=== PATIENT | female | born 1970 | race Caucasian/White ===

== ENCOUNTER → 2017-11-12 06:51 | Outpatient (CLI) | payer BC, SELFPAY ==
--- NOTE | 2017-11-12 06:55 | CA_ITS ---
PROCEDURE: 2-D M-mode and color Doppler study INDICATIONS FOR THE TEST: Chest pain X COPD Heart Murmur Tobacco Smoking PalpitationsX FatigueX Syncope Edema Hypertension Diabetes Mellitus Rheumatic Fever SOB ANDINO Obesity Hyperlipidemia Family History HD Additional History BREAST IMPLANTS TDS APICAL VIEWS PATIENT INFORMATION HEIGHT: 61 WEIGHT:152 GENDER: Female B/P:123/82 2-D/M-MODE INTERPRETATION: 2-D MEASUREMENTS OBSERVED VALUES IN CMS Right Ventricular Dimension (RVDd) 2.9 Interventricular Septum (Thickness)(IVsd) .7 Left Ventricular Internal Dimensions(LVIDd) 4.6 Left Ventricular Posterior Wall (Thickness)(LVPWd) .7 Aortic Root 3.3 Aortic Cusp Separation 2.0 Left Atrial Dimensions (LAD) 3.4 2D 1. Left atrium is normal size, left ventricle is normal size, there is no concentric left ventricular hypertrophy, visually estimated ejection fraction 55% with no obvious regional wall motion abnormality. 2. The right atrium and right ventricle are grossly normal size and contractility. 3. The aortic, mitral and tricuspid valve are grossly normal. 4. The pulmonic valve is poorly visualized. 5. No significant pericardial effusion noted. DOPPLER INTERROGATION: Doppler interrogation of the aortic, mitral and tricuspid valvular presence of mild mitral and tricuspid regurgitation, tricuspid regurgitation jet velocity is insufficient for calculation of the right ventricular systolic pressure, diastolic parameters are inconclusive. CONCLUSION: 1. Normal left ventricular size, there is no concentric left ventricular hypertrophy, visually estimated ejection fraction 55% with no regional wall motion abnormality. Diastolic parameters are inconclusive. 2. Mild mitral and tricuspid regurgitation 3. No significant pericardial effusion noted.
--- NOTE | 2017-11-12 06:55 | NM_ITS ---
History and Indications: Chest pain, shortness of breath, palpitations, fatigue and family history. Procedure: Patient exercised on Bubba protocol 8 minutes, resting heart rate was 83 beats per resting blood pressure 155/95, with exercise maximum heart rate achieved was 1 55 bpm which is greater than 85% of the maximum predicted heart rate and a blood pressure was 168/80. Test was started due to shortness of breath patient denied any complained of chest pain. Patient has good exercise capacity achieved 10.1mets of workload on treadmill, the blood pressure response to exercise was adequate. Electrocardiogram: Resting echocardiogram showed sinus rhythm, with exercise there is less than 1.[address] segment depression noted from the baseline EKG. The EKG portion of the exercise Myoview is negative for ischemia. Cardiac stress and resting SPECT images: Cardiac stress and rest SPECT images were obtained using technetium 99 Myoview 29.7 mCi stress and 10.6 mCi at rest gated SPECT further analysis of segmental wall motion and calculation of the ejection fraction also done. Cardiac stress and rest images show a mild fixed defect in the anterior wall with normal contractility in the gated SPECT is secondary to soft tissue attenuation, no reversible ischemia seen, computer derived ejection fraction is over 65% with no regional wall motion abnormality, right ventricle is normal size and contractility. Conclusion: 1. The EKG portion of the exercise Myoview is negative for ischemia, patient has good exercise capacity achieved 10.1mets of workload on treadmill, the blood pressure response to exercise was adequate, there was no exercise-induced chest discomfort. 2. No scintigraphic evidence of reversible ischemia seen at this level of exercise, computer derived ejection fraction is over 65% with no regional wall motion abnormality, right ventricle is normal size and contractility. 3. Normal exercise Myoview study.
--- NOTE | 2017-11-12 09:33 | HMH.ITSHM ---
levothyroxine colace calium
== END ==
PROVIDERS: PCP Internal Medicine; Visit Provider Internal Medicine
DX: R07.9 Chest pain, unspecified (principal); R00.0 Tachycardia, unspecified; R00.2 Palpitations; R06.02 Shortness of breath; C73 Malignant neoplasm of thyroid gland; F43.9 Reaction to severe stress, unspecified; R91.8 Other nonspecific abnormal finding of lung field
CPT/HCPCS: 78452; 93017; 93306; A9502

== ENCOUNTER 2018-05-19 17:20 | Observation (INO) ==
--- NOTE | 2018-05-19 18:37 | Emergency Department Note ---
ED Disposition Clinical Impression: Elevated liver enzymes Fever Qualifiers: Fever type: unspecified Qualified Code(s): R50.9 - Fever, unspecified Disposition: Admitted as Observation Condition on Discharge: Fair Referrals: Provider,Referral, [Referring] - - Critical Care Critical Care Time: No Attestation: On 05/19/18, the high probability of a clinically significant, sudden or life threatening deterioration of the following system(s) required my full and direct attention, intervention and personal management. The time I documented below is in addition to time spent performing reported procedures but includes the following listed in this critical care notation. Medical Decision Making - Naveen Inquiry Pt receiving controlled substance: No Vital Signs: 05/19/18 17:31 05/19/18 17:52 05/19/18 18:10 Temperature 98.2 F Temperature Source Oral Pulse Rate 108 H Pulse Rate [Left Radial] 111 H 100 H Respiratory Rate 18 18 Blood Pressure [Right Arm] 149/92 H 161/98 H Blood Pressure Mean [Right Arm] 111 119 Blood Pressure Source [Right Arm] Automatic Cuff Automatic Cuff Blood Pressure Position [Right Arm] Sitting Sitting 02 Sat by Pulse Oximetry 95 98 Oxygen Delivery Method Room Air Room Air 05/19/18 19:40 05/19/18 20:34 Temperature 100.6 F H 99.7 F H Temperature Source Oral Oral Pulse Rate Pulse Rate [Left Radial] 114 H 101 H Respiratory Rate 18 18 Blood Pressure [Right Arm] 150/91 H Blood Pressure Mean [Right Arm] 110 Blood Pressure Source [Right Arm] Blood Pressure Position [Right Arm] 02 Sat by Pulse Oximetry 98 95 Oxygen Delivery Method Room Air Room Air - Lab Data Lab Results 05/19/18 17:49: Influenza Type A Ag Negative, Influenza Type B Ag Negative 05/19/18 17:49: Group A Strep Rapid Negative 05/19/18 18:00: WBC 9.8, RBC 4.73, Hgb 13.9, Hct 41.5, MCV 87.8, MCH 29.4, MCHC 33.5, RDW 12.9, Plt Count 270, MPV 6.9 L, Neut % (Auto) 75.5, Lymph % (Auto) 16.3, [place] % (Auto) 6.1, Eos % (Auto) 1.7, Baso % (Auto) 0.3, Neut # (Auto) 7.4, Lymph # (Auto) 1.6, [place] # (Auto) 0.6, Eos # (Auto) 0.2, Baso # (Auto) 0.0 05/19/18 18:00: Sodium 142, Potassium 3.3 L, Chloride 103, Carbon Dioxide 29, Anion Gap 13.3, BUN 8, Creatinine 0.74, Estimated Creat Clear 104, Estimated GFR 84, Est GFR ( Amer) 102, Glucose 91, Calcium 9.1, Total Bilirubin 0.4, AST 190 H, ALT 389 H*, Alkaline Phosphatase 161 H, Total Protein 8.1, Albumin 3.8, Globulin 4.3 H, Albumin/Globulin Ratio 0.9 L, TSH 1.46 05/19/18 18:00: Lactate 1.0 05/19/18 18:00: Monoscreen Negative 05/19/18 19:25: Urine Color Yellow, Urine Appearance Clear, Urine pH 6.0, Ur Specific [place] 1.010, Urine Protein Negative, Urine Glucose (UA) Negative, Urine Ketones Negative, Urine Blood 1+, Urine Nitrate Negative, Urine Bilirubin Negative, Urine Urobilinogen 0.2, Ur Leukocyte Esterase Negative, Urine RBC Occasional, Urine WBC Occasional, Ur Squamous Epith Cells Occasional, Urine Bacteria Trace Result diagrams: 05/19/18 18:00 05/19/18 18:00 Orders (Tests/Meds): ED MEDICATIONS Generic Name Dose Route Start Last Admin Trade Name Freq PRN Reason Stop Dose Admin Sodium Chloride 10 ml 05/19/18 19:13 Saline Flush 10ml Syringe IV 06/18/18 19:12 NEEDED PRN Maintain IV Site Discontinued Medications Generic Name Dose Route Start Last Admin Trade Name Freq PRN Reason Stop Dose Admin Acetaminophen 1,000 mg 05/19/18 19:38 05/19/18 19:39 Tylenol 500mg Tablet PO 05/19/18 19:39 1,000 mg ONCE ONE Administration Albuterol/Ipratropium 3 ml 05/19/18 18:11 05/19/18 18:10 Duoneb 3ml Neb IH 05/19/18 18:12 3 ml ONCE ONE Administration Ketorolac Tromethamine 30 mg 05/19/18 20:37 05/19/18 20:37 Toradol 30mg/Ml Vial IV 05/19/18 20:38 30 mg ONCE ONE Administration Sodium Chloride 1,000 ml 05/19/18 19:14 05/19/18 19:17 Sod Chlor 0.9% 1000ml Bag IV 05/19/18 19:15 1,000 ml BOLUS ONE Administration ORDERS Category Date Time Status Chest XR 2 view (NOT portable) [XR chest 2V] Stat Exams 05/19/18 19:14 Taken C-Reactive Protein Stat Lab 05/19/18 20:45 Ordered ESR [Erythrocyte Sedimentation Rate] Stat Lab 05/19/18 20:45 Ordered Hepatitis Panel (4) Routine Lab 05/19/18 18:00 Received Blood Culture Stat Micro 05/19/18 18:00 Received Strep Screen Confirmation Stat Micro 05/19/18 17:49 Received - Radiology Data #1 Image(s): Chest Image Reviewed: Yes I reviewed the patient's radiology image Preliminary Findings: Normal/NAD - Physician Consults Physician Consulted: Jai (patient's personal friend, per her request) Time: 20:52 Reason -: Pt condition Comment/Response: Patient approves discussing case. Additional Consult: Amisha Time: 20:52 Reason -: Admission Comment/Response: Agrees to admit the patient to the hospital. We discussed the patient's clinical information, including history, exam, laboratory and radiology results and ED course. Per hospital procedure, I will write temporary bridge inpatient orders on the patient. Specific orders requested by the admitting physician: Sed rate, CRP, continue IV fluids. General Adult HPI - General Chief complaint: Upper Respiratory Infection Stated complaint: cough,fever,throat hurts Time Seen by Provider: 05/19/18 19:06 Mode of Arrival: Ambulatory Limitations: No Limitations Description of Symptoms (Recalled from ER Triage Doc. by RN): pt has been complaining of a fever for several months, a cough for the past three days; dry cough, sore throat. Pt states that she has been experiencing hematuria; she also states that she has thyroid cancer. pt complains of myalgia and weakness - History of Present Illness HPI narrative: Since Thursday 3 days ago has had hoarse voice, sinuses, cough, fever up to 101.5. Also states for the past 6 months she has had chills, subjective low-grade fever not measured, and fatigue. She says she has seen her primary care doctor and has been on antibiotics several times due to enlarged lymph nodes. She also says that she had hematuria about 6 months ago and was treated with antibiotic for UTI. Hematuria recurred 2 weeks ago. Also complains of a very dry mouth, feels dehydrated. - Related Data Home Medications Medication Instructions Recorded Confirmed calcium carbonate 300 mg (750 mg) 600 mg PO BID tab 11/04/17 05/19/18 chewable tablet estradiol 1 mg tablet 1 mg PO BID tab 11/04/17 05/19/18 levothyroxine 125 mcg tablet 125 mcg PO DAILY 11/04/17 05/19/18 omeprazole 20 mg capsule,delayed 20 mg PO DAILY 11/04/17 05/19/18 release Amoxicillin/Potassium Clav 2 tab PO DAILY 05/19/18 05/19/18 [Augmentin 500mg tab] Allergies Allergy/AdvReac Type Severity Reaction Status Date / Time No Known Allergies Allergy Verified 11/16/17 12:27 [facility] History - Hepatitis A Screen Drug use history?: No High risk sexual behaviors?: No History of sexually transmitted infection?: No Currently employed?: No Childcare worker?: No Do you have indoor plumbing?: Yes Do you have electricity?: Yes Attestation statement:: This patient has been screened for Hepatitis A risk factors. I have reviewed the patient's past medical history: Yes Medical History: Reports:: Gastroesophageal Reflux Disease(GERD) Denies:: Cancer, Diabetes Mellitus Type 1, Diabetes Mellitus Type 2, Internal Pacemaker, MRSA Other Surgeries: Yes: Cancer Surgery (thyroid), Cholecystectomy, , Hysterectomy-Total, Hysterectomy-Partial. No: Pacemaker Amputation: No Fractures: No Comment: Jaw surgery - Social History Educational Level: Completed High School Smoking Status: Current some day smoker Tobacco Type: cigarettes # Packs/Day (cigarettes): 1 Alcohol Intake: current Alcohol Intake Frequency:: holidays/special occasions only Occupational Status: employed Housing: house Household Members: spouse - Psychiatric History Expresses thoughts of harming self/others: None Suicide Plan Description: No Plan Family Hx:: Diabetes, Heart Attack ROS Obtained: Yes All systems reviewed & no additional complaints - Constitutional Constitutional: Reports fever(s), Reports malaise Physical Exam - General General appearance: alert, in no apparent distress - Head Head exam: atraumatic, normocephalic, normal inspection - Eye Eye exam: Present: normal appearance, PERRL, EOMI - ENT ENT exam: Present: normal exam, normal oropharynx, mucous membranes moist, TM's normal bilaterally, normal external ear exam - Neck Neck exam: Present: normal inspection, full ROM, trachea midline. Absent: meningismus, lymphadenopathy - Chest Chest inspection: Present: normal inspection, symmetric chest wall rise - Respiratory Respiratory exam: Present: normal lung sounds bilaterally. Absent: respiratory distress - Cardiovascular Cardiovascular exam: Present: regular rate, normal rhythm. Absent: JVD - Abdominal Exam Abdominal exam: Present: soft, normal bowel sounds. Absent: distention, tenderness, guarding - Extremities Exam Extremities exam: Present: normal inspection, full ROM, normal capillary refill. Absent: calf tenderness - Neurological Exam Neurological exam: Present: alert, oriented X3 - Psychiatric Psychiatric exam: Present: normal affect, normal mood - Skin Skin exam: Present: warm, dry, intact, normal color - Lymphatic Lymphatic Findings: no adenopathy
[2018-05-19 19:27] LABS: Basophils % 0.3 % (0.1-2.0); Eosinophils # 0.2 K/mm3 (0.0-0.4); Eosinophils % 1.7 % (0.1-12.0); Hematocrit 41.5 % (37.0-47.0); Hemoglobin 13.9 g/dL (12.2-16.2); Lymphocytes # 1.6 K/mm3 (0.7-4.5); Lymphocytes % 16.3 % (10-50); Mean Corpuscular HGB Conc 33.5 g/dL (31.8-35.4); Mean Corpuscular Hemoglobin 29.4 pg (27.0-31.2); Mean Corpuscular Volume 87.8 fl (81-99); Mean Platelet Volume 6.9 fl (7.4-10.4); Monocytes # 0.6 K/mm3 (0.1-1.0); Monocytes % 6.1 % (1.7-9.3); Neutrophils # 7.4 K/mm3 (1.8-7.8); Neutrophils % 75.5 % (37.0-80.0); Platelet Count 270 K/mm3 (142-424); Red Blood Count 4.73 M/mm3 (4.20-5.40); Red Cell Distribution Width 12.9 % (11.5-17.5); White Blood Count 9.8 K/mm3 (4.8-10.8)
[2018-05-19 19:35] LABS: Microscopic, Urine URINE MICROSCOPIC (MICROSCOPIC)
[2018-05-19 19:37] LABS: Appearance,Urine CLEAR (Clear); Bilirubin,Urine Negative (Negative); Blood, Urine 1+ (Negative); Color,Urine YELLOW (Yellow); Glucose,Urine (UA) Negative (Negative); Ketones,Urine Negative (Negative); Leukocyte Esterase,Urine Negative (Negative); Protein,Urine Negative (Negative); Urobilinogen,Urine 0.2 EU/dl (0.2)
[2018-05-19 19:40] LABS: Albumin Level 3.8 gm/dL (3.4-5.0); Albumin/Globulin Ratio 0.9 (1.1-1.8); Anion Gap 13.3 mEq/L (5-15); Bilirubin,Total 0.4 mg/dL (0.2-1.0); Calcium 9.1 mg/dL (8.5-10.1); Globulin 4.3 gm/dl (1.3-3.2); Potassium 3.3 mmoL/L (3.5-5.1); Thyroid Stimulating Hormone 1.46 uIU/ml (0.358-3.740); Total Protein,Serum 8.1 gm/dL (6.4-8.2)
[2018-05-19 20:09] LABS: Bacteria,Urine Trace /lpf; RBC,Urine Occasional #/hpf (0-3); Squamous Epithelial Cell,Urine Occasional #/hpf (0-5); WBC,Urine Occasional #/hpf (0-3)
[2018-05-19 20:57] LABS: Coronavirus 229E Not Detected (NotDetected); Coronavirus NL63 Not Detected (NotDetected); Coronavirus OC43 Not Detected (NotDetected); Coronovirus HKU1,PCR Not Detected (NotDetected)
[2018-05-20 08:06] LABS: Basophils # 0.1 K/mm3 (0-0.2); Basophils % 0.7 % (0.1-2.0); Eosinophils # 0.5 K/mm3 (0.0-0.4); Eosinophils % 6.6 % (0.1-12.0); Hematocrit 38.2 % (37.0-47.0); Hemoglobin 12.7 g/dL (12.2-16.2); Lymphocytes # 1.3 K/mm3 (0.7-4.5); Lymphocytes % 18.7 % (10-50); Mean Corpuscular HGB Conc 33.3 g/dL (31.8-35.4); Mean Corpuscular Hemoglobin 29.4 pg (27.0-31.2); Mean Corpuscular Volume 88.1 fl (81-99); Mean Platelet Volume 6.7 fl (7.4-10.4); Monocytes # 0.6 K/mm3 (0.1-1.0); Neutrophils # 4.6 K/mm3 (1.8-7.8); Platelet Count 246 K/mm3 (142-424); Red Blood Count 4.34 M/mm3 (4.20-5.40); Red Cell Distribution Width 12.9 % (11.5-17.5)
[2018-05-20 08:19] LABS: Bilirubin,Direct 0.1 mg/dL (0.0-0.2); Bilirubin,Indirect 0.3 mg/dL (0.0-0.9); Bilirubin,Total 0.4 mg/dL (0.2-1.0); Total Protein,Serum 6.6 gm/dL (6.4-8.2)
--- NOTE | 2018-05-20 08:59 | Pharmacy Consult Notes ---
[facility] Pharmacy VTE Monitoring - Patient Demographics Admission date: 05/20/18 Report Date: 05/20/18 Time: 08:59 Allergies/Adverse Reactions: Patient Allergies No Known Allergies Allergy (Verified 11/16/17 12:27) Height: 1.52 m Weight: 72.263 kg Patient Problems: Current Active Problems Fever (Acute) Elevated liver enzymes (Acute) - VTE Risk Labs: VTE Related Lab Results Hgb 12.7 g/dL (12.2-16.2) 05/20/18 07:43 Hct 38.2 % (37.0-47.0) 05/20/18 07:43 Plt Count 246 K/mm3 (142-424) 05/20/18 07:43 BUN 8 mg/dL (7-18) 05/19/18 18:00 Creatinine 0.74 mg/dL (0.55-1.02) 05/19/18 18:00 Estimated Creat Clear 104 mL/min (50-200) 05/19/18 18:00 Was VTE Risk Assessment Performed: Yes VTE Risk Level: Low Risk Clinical Trial Participant: No - Prophylaxis VTE Prophylaxis Ordered?: Yes Types of VTE Prophylaxis: TEDS Knee High
--- NOTE | 2018-05-20 09:08 | History & Physical Report ---
*Admission Date: 05/20/18 *Chief complaint: fatigue *History of present illness: 48 yr old female presents to ed with c/o of hoarse voice, sinuses, cough,dry mouth, fever up to 101.5. Pt states for the past 6 months she has had chills, subjective low-grade fever not measured, and fatigue. She says she has had enlarged lymph nodes and on antibiotics several times by primary care doctor.She also says that she had hematuria about 6 months ago and was treated with antibiotic for UTI. Hematuria recurred 2 weeks ago. [facility] History I have reviewed the patient's past medical history: Yes Medical History: Reports:: Cancer (Thyroid cancer 2013), Gastroesophageal Reflux Disease(GERD), Hyperlipidemia Denies:: Diabetes Mellitus Type 1, Diabetes Mellitus Type 2, Internal Pacemaker, MRSA *Have you ever received a pneumonia vaccine?: No *Have you received a flu vaccine this season?: No Other Medical History: Reports: Radiation Therapy (2013), Sinus Problems Other Surgeries: Yes: Cancer Surgery (thyroid), Cholecystectomy, Colonoscopy, C- section, EGD, Hysterectomy-Total, Hysterectomy-Partial, Thyroidectomy (partial). No: Pacemaker Amputation: No Fractures: No - *Social History Educational Level: Attended High School Smoking Status: Current every day smoker Tobacco Type: cigarettes # Packs/Day (cigarettes): 0 Alcohol Intake: never Alcohol Intake Frequency:: holidays/special occasions only *Occupational Status:: employed Housing: house Household Members: spouse *Travel in the last 8 weeks: None - Psychiatric History Expresses thoughts of harming self/others: None Suicide Plan Description: No Plan Family Hx:: Diabetes, Heart Attack, Hyperlipidemia, Hypertension, Stroke, Thyroid Disorder Review of Systems - Review of Systems Review of systems:: pertinent systems reviewed and negative unless documented below - Constitutional Reports chills, Reports fever(s) - Eyes Denies change in vision - ENT Reports dry mouth, Reports sinus pain, Denies change in voice - *Cardiovascular Denies chest pain with activity, Denies shortness of breath - *Respiratory Denies chest congestion, Denies cough - *Gastrointestinal Denies bloating - *Genitourinary Denies urinary urgency - *Musculoskeletal Reports body aches - Integumentary/Breasts Denies rash - *Neurologic Denies dizziness - Psychiatric Denies anxiety - Endocrine Denies excessive sweating - Hematologic/Lymphatic Reports enlarged lymph nodes - Allergic/Immunologic Denies lip swelling, Denies hives Meds Home Medications Medication Instructions Recorded Confirmed Type calcium carbonate 300 mg (750 mg) 600 mg PO BID tab 11/04/17 05/19/18 History chewable tablet estradiol 1 mg tablet 2 mg PO DAILY tab 11/04/17 05/20/18 History levothyroxine 125 mcg tablet 125 mcg PO DAILY 11/04/17 05/19/18 History omeprazole 20 mg capsule,delayed 20 mg PO DAILY 11/04/17 05/19/18 History release Amoxicillin/Potassium Clav 1 tab PO BID 05/19/18 05/20/18 History [Augmentin 500mg tab] Diclofenac Sodium [Diclofenac 75mg 75 mg PO BIDP PRN 05/20/18 05/20/18 History Tab] Trazodone HCl 50 mg PO HS 05/20/18 05/20/18 History Zolpidem Tartrate [Ambien 10mg 10 mg PO HSP PRN 05/20/18 05/20/18 History tablet] Allergies Allergy/AdvReac Type Severity Reaction Status Date / Time No Known Allergies Allergy Verified 11/16/17 12:27 Exam Vital signs and Labs for Last 24 Hours: Temp Pulse Resp BP Pulse Ox 98.1 F 94 H 16 122/78 95 05/20/18 08:00 05/20/18 08:00 05/20/18 08:00 05/20/18 08:00 05/20/18 08:00 Laboratory Results - last 24 hr 05/19/18 17:49: Influenza Type A Ag Negative, Influenza Type B Ag Negative 05/19/18 17:49: Group A Strep Rapid Negative 05/19/18 18:00: WBC 9.8, RBC 4.73, Hgb 13.9, Hct 41.5, MCV 87.8, MCH 29.4, MCHC 33.5, RDW 12.9, Plt Count 270, MPV 6.9 L, Neut % (Auto) 75.5, Lymph % (Auto) 16.3, [place] % (Auto) 6.1, Eos % (Auto) 1.7, Baso % (Auto) 0.3, Neut # (Auto) 7.4, Lymph # (Auto) 1.6, [place] # (Auto) 0.6, Eos # (Auto) 0.2, Baso # (Auto) 0.0 05/19/18 18:00: Sodium 142, Potassium 3.3 L, Chloride 103, Carbon Dioxide 29, Anion Gap 13.3, BUN 8, Creatinine 0.74, Estimated Creat Clear 104, Estimated GFR 84, Est GFR ( Amer) 102, Glucose 91, Calcium 9.1, Total Bilirubin 0.4, AST 190 H, ALT 389 H*, Alkaline Phosphatase 161 H, Total Protein 8.1, Albumin 3.8, Globulin 4.3 H, Albumin/Globulin Ratio 0.9 L, TSH 1.46 05/19/18 18:00: Lactate 1.0 05/19/18 18:00: Monoscreen Negative 05/19/18 18:00: ESR 0 05/19/18 18:00: C-Reactive Protein 6.1 H 05/19/18 18:00: Mycoplasma pneumon IgM Non-reactive 05/19/18 19:25: Urine Color Yellow, Urine Appearance Clear, Urine pH 6.0, Ur Specific [place] 1.010, Urine Protein Negative, Urine Glucose (UA) Negative, Urine Ketones Negative, Urine Blood 1+, Urine Nitrate Negative, Urine Bilirubin Negative, Urine Urobilinogen 0.2, Ur Leukocyte Esterase Negative, Urine RBC Occasional, Urine WBC Occasional, Ur Squamous Epith Cells Occasional, Urine Bacteria Trace 05/19/18 20:50: Chlamy pneumoniae PCR Not detected, Adenovirus (PCR) Not detected, B. pertussis DNA (PCR) Not detected, Coronavirus OC43 (PCR) Not detected, Coronavirus HKU1 (PCR) Not detected, Coronavirus 229E (PCR) Not detected, Coronavirus NL63 (PCR) Not detected, Human Metapneumovir PCR Not detected, Influenza A (H1) PCR Not detected, Influ A (H1N1/09) PCR Not detected, Influenza A (H3) PCR Not detected, Influenza Type A (PCR) Not detected, Influenza Type B (PCR) Not detected, M. pneumoniae (PCR) Not detected, Parainfluenza 1 (PCR) Not detected, Parainfluenza 2 (PCR) Not detected, Parainfl uenza 3 (PCR) Detected A, Parainfluenza 4 (PCR) Not detected, RSV (PCR) Not detected, Entero/Rhino (PCR) Not detected 05/20/18 07:43: WBC 7.0 D, RBC 4.34, Hgb 12.7, Hct 38.2, MCV 88.1, MCH 29.4, MCHC 33.3, RDW 12.9, Plt Count 246, MPV 6.7 L, Neut % (Auto) 66.0, Lymph % (Auto) 18.7, [place] % (Auto) 8.0, Eos % (Auto) 6.6, Baso % (Auto) 0.7, Neut # (Auto) 4.6, Lymph # (Auto) 1.3, [place] # (Auto) 0.6, Eos # (Auto) 0.5 H, Baso # (Auto) 0.1 05/20/18 07:43: Total Bilirubin 0.4, Direct Bilirubin 0.1, Indirect Bilirubin 0.3, AST 188 H, ALT 351 H*, Alkaline Phosphatase 146 H, Total Protein 6.6, Albumin 3.0 L D I & O for Last 24 hours: Intake & Output 05/17/18 05/18/18 05/19/18 05/20/18 11:59 11:59 11:59 11:59 Intake Total 240 / 240 Balance 240 / 240 Weight 159 lb 5 oz - Constitutional no acute distress - *Routine HEENT Exam Head: Present: normocephalic Eye: Present: EOMI, PERRL ENT: Present: mucous membranes moist Comments: nasal congestion,runny nose - *Routine Neck Exam Present: supple, lymphadenopathy - *Routine Respiratory Exam Present: CTA bilaterally - *Routine Cardiovascular Exam Present: RRR - *Routine Abdominal Exam Present: soft, normoactive bowel sounds. Absent: tenderness - *Routine Extremities Exam Absent: cyanosis, clubbing, edema - *Routine Skin Exam Present: warm. Absent: rash - *Routine Neurological Exam Present: alert, oriented X3 - Routine Psychiatric Exam Present: normal affect Assessment and Plan (1) Fever Current visit: Yes Status: Acute Qualifiers: Fever type: unspecified Qualified Code(s): R50.9 - Fever, unspecified Category: Medical Code(s): R50.9 - Fever, unspecified (2) Multiple pulmonary nodules Current visit: No Status: Chronic Category: Medical Code(s): R91.8 - Other nonspecific abnormal finding of lung field (3) Thyroid cancer Current visit: No Status: Chronic Category: Medical Code(s): C73 - Malignant neoplasm of thyroid gland history of thyroid cancer - Assessment and plan all Dx Assessment and Plan for all problems:: rounded with elen all orders per elen
[2018-05-20 10:07] LABS: Free Thyroxine Index 4.3 ug/dL (5.93-13.13); Thyroid Stimulating Hormone 2.75 uIU/ml (0.358-3.740)
[2018-05-21 08:56] LABS: Basophils % 0.2 % (0.1-2.0); Eosinophils % 0.4 % (0.1-12.0); Hematocrit 38.5 % (37.0-47.0); Hemoglobin 12.7 g/dL (12.2-16.2); Lymphocytes # 0.7 K/mm3 (0.7-4.5); Lymphocytes % 11.8 % (10-50); Mean Corpuscular Volume 87.7 fl (81-99); Monocytes # 0.3 K/mm3 (0.1-1.0); Monocytes % 5.7 % (1.7-9.3); Neutrophils # 4.9 K/mm3 (1.8-7.8); Neutrophils % 81.9 % (37.0-80.0); Platelet Count 254 K/mm3 (142-424); Red Blood Count 4.39 M/mm3 (4.20-5.40); Red Cell Distribution Width 12.7 % (11.5-17.5); White Blood Count 5.9 K/mm3 (4.8-10.8)
[2018-05-21 09:15] LABS: Hepatitis B Core Antibody IgM Negative (Negative); Hepatitis B Surface Antigen Negative (Negative)
[2018-05-21 09:24] LABS: Albumin Level 2.9 gm/dL (3.4-5.0); Albumin/Globulin Ratio 0.7 (1.1-1.8); Anion Gap 13.6 mEq/L (5-15); Bilirubin,Total 0.2 mg/dL (0.2-1.0); Globulin 3.9 gm/dl (1.3-3.2); Potassium 3.6 mmoL/L (3.5-5.1); Total Protein,Serum 6.8 gm/dL (6.4-8.2)
--- NOTE | 2018-05-21 09:26 | Discharge Summary ---
General - General Admission date:: 05/19/18 Discharge date: 05/21/18 HPI HPI: 48 yr old female presents to ed with c/o of hoarse voice, sinuses, cough,dry mouth, fever up to 101.5. Pt states for the past 6 months she has had chills, subjective low-grade fever not measured, and fatigue. She says she has had enlarged lymph nodes and on antibiotics several times by primary care doctor.She also says that she had hematuria about 6 months ago and was treated with antibiotic for UTI. Hematuria recurred 2 weeks ago. Hospital Course Hospital Course: ct chest:IMPRESSION: There are 3 faint groundglass nodular opacities in the right upper lobe, a 5 mm nodular opacity in the right lower lobe, and patchy infiltrate in the left lung base. All of these areas could be related to infectious process/pneumonia. Suggest 6-8 week follow-up to confirm resolution as neoplasm cannot be excluded regarding the right upper and right lower lobe nodules. No adenopathy apparent ct abd/pelvis:FINDINGS: The liver, spleen, pancreas, adrenal glands, and kidneys have an unremarkable appearance. No renal or ureteral calculi. No renal or ureteral calculi evident. No intestinal obstruction or free air. No evidence of appendicitis. There is mild diverticulosis of the descending and sigmoid colon. There is some mild thickening of the descending and sigmoid colon which could be due to nondistention or colitis. There are few small mesenteric lymph nodes. No acute bony findings. There are postcholecystectomy changes. IMPRESSION: 1. Possible colitis of the descending and sigmoid colon versus nondistention. 2. Otherwise negative Today patient states she is feeling better and feels like she can go home. Asked patient to get up maneuver around the room see if she feels she can go home. Patient will follow up with Dr. Ward on Thursday. Patient will call the office for other lab results. Patient will follow up with her primary care provider. Objective Vital signs: Temp Pulse Resp BP Pulse Ox 98.4 F 89 17 120/73 92 L 05/21/18 08:00 05/21/18 08:00 05/21/18 08:00 05/21/18 08:00 05/21/18 08:00 no acute distress - *Routine HEENT Exam Head: Present: normocephalic Eye: Present: PERRL ENT: Present: mucous membranes moist - *Routine Neck Exam Present: full ROM - *Routine Respiratory Exam Present: CTA bilaterally - *Routine Cardiovascular Exam Present: RRR - *Routine Abdominal Exam Present: soft, normoactive bowel sounds - *Routine Extremities Exam Present: full ROM - *Routine Skin Exam Present: intact - *Routine Neurological Exam Present: alert, oriented X3 - Routine Psychiatric Exam Present: normal affect Results Labs on day of discharge: Labs from last 24 hours 05/21/18 05/21/18 05/20/18 08:40 08:40 09:28 WBC 5.9 RBC 4.39 Hgb 12.7 Hct 38.5 MCV 87.7 MCH 29.0 MCHC 33.0 RDW 12.7 Plt Count 254 MPV 7.0 L Neut % (Auto) 81.9 H Lymph % (Auto) 11.8 [place] % (Auto) 5.7 Eos % (Auto) 0.4 Baso % (Auto) 0.2 Neut # (Auto) 4.9 Lymph # (Auto) 0.7 [place] # (Auto) 0.3 Eos # (Auto) 0.0 Baso # (Auto) 0.0 Sodium 143 Potassium 3.6 Chloride 105 Carbon Dioxide 28 Anion Gap 13.6 BUN 6 L Creatinine 0.64 Estimated Creat Clear 125 Estimated GFR 99 Est GFR ( Amer) 120 Glucose 167 H Total Bilirubin 0.2 AST 125 H D ALT 347 H* Alkaline Phosphatase 165 H Total Protein 6.8 Albumin 2.9 L Globulin 3.9 H Albumin/Globulin Ratio 0.7 L TSH 2.75 D Free T4 Index 4.3 L Thyroxine (T4) 12.0 T3 Uptake 36 - Additional Comments Rounded with Dr. Lion all orders per Amisha DS: Diagnosis - Discharge Diagnosis (1) Fever Status: Acute (2) Multiple pulmonary nodules Status: Chronic (3) Thyroid cancer Status: Chronic Discharge Plan - Patient Discharge Instructions ACTIVITY: Continue current activity DIET: continue same diet Patient Instructions: Fever of Unknown Origin, Liver Function Tests - Follow up Plan Follow up with: Cesar Ward MD [Consulting Physician] - 05/25/18 Disposition: Home, Self-Half-Way Medications: Home Medications Medication Instructions Recorded Confirmed Type calcium carbonate 300 mg (750 mg) 600 mg PO BID tab 11/04/17 05/19/18 History chewable tablet estradiol 1 mg tablet 2 mg PO DAILY tab 11/04/17 05/20/18 History levothyroxine 125 mcg tablet 125 mcg PO DAILY 11/04/17 05/19/18 History omeprazole 20 mg capsule,delayed 20 mg PO DAILY 11/04/17 05/19/18 History release Amoxicillin/Potassium Clav 1 tab PO BID 05/19/18 05/20/18 History [Augmentin 500mg tab] Diclofenac Sodium [Diclofenac 75mg 75 mg PO BIDP PRN 05/20/18 05/20/18 History Tab] Zolpidem Tartrate [Ambien 10mg 10 mg PO HSP PRN 05/20/18 05/20/18 History tablet] levoFLOXacin [Levaquin 500mg 500 mg PO DAILY #7 tab 05/21/18 Rx tab] Prescriptions/Medication Reconciliation: New levoFLOXacin [Levaquin 500mg tab] 500 mg PO DAILY #7 tab Continue levothyroxine 125 mcg tablet 125 mcg PO DAILY calcium carbonate 300 mg (750 mg) chewable tablet 600 mg PO BID tab omeprazole 20 mg capsule,delayed release 20 mg PO DAILY estradiol 1 mg tablet 2 mg PO DAILY tab Zolpidem Tartrate [Ambien 10mg tablet] 10 mg PO HSP PRN PRN Reason: Insomnia Diclofenac Sodium [Diclofenac 75mg Tab] 75 mg PO BIDP PRN PRN Reason: Hip pain Discontinued Amoxicillin/Potassium Clav [Augmentin 500mg tab] 1 tab PO BID
[2018-05-21 09:33] LABS: Calcium 7.8 mg/dL (8.5-10.1)
[2018-05-21 12:16] LABS: Anti-Smith Antibody <0.2 AI (0.0-0.9)
[2018-05-21 18:32] LABS: Hepatitis C Antibody <0.1 s/co ratio (0.0-0.9)
== END 2018-05-21 12:39 | disposition home or self-care (01) ==
LOC: ER 17:20 → 2ND 17:20 → INTOOBSV 23:00 → OBSVTOIN 23:00 → 2ND 23:02
PROVIDERS: ADMIT Emergency Medicine; ATTEND Emergency Medicine
CPT/HCPCS: 36415; 71020; 71046; 71260; 74177; 80053; 80074; 80076; 81001; 82652; 83605; 84436; 84443; 84479; 85025; 85597; 85598; 85610; 85613; 85651; 85670; 85730; 86140; 86146; 86147; 86225; 86235; 86318; 86618; 86738; 87040; 87275; 87276; 87430; 87486; 87522; 87581; 87633; 87798; 96365; 96375; 99284; G0378; J2405; Q9967

== ENCOUNTER → 2020-01-16 10:43 | Outpatient (CLI) | payer OTHER, SELFPAY ==
[2020-01-17 14:05] LABS: Covid-19 Nasal PCR Sendout Lex NOT DETECTED
== END ==
PROVIDERS: Visit Provider Nurse Practitioner Family
DX: Z03.818 Encounter for observation for suspected exposure to other biological agents ruled out (principal)
CPT/HCPCS: U0004

== ENCOUNTER → 2020-01-25 15:00 | Outpatient (CLI) | payer OTHER, SELFPAY ==
--- NOTE | 2020-01-25 15:02 | CA_ITS ---
APPROVED REPORT EXAM: Comprehensive 2D, Doppler, and color-flow Echocardiogram Vice President Integrated: Nora Vicente CRT Ht: 5 ft 1 in Wt: 132lbs BSA: 1.58 BP: 120/73 mmHg Indications: SOA,CP,SMOKER,HTN,DIZZINESS,GERD,HX THYROID CA TDS-PT HAS BREAST IMPLANTS-LIMITED WINDOWS 2D Dimensions LVOT 1.91 cm (M/F) 1.5-2.5 M-Mode Dimensions RVDd 2.92 cm (0.9-2.6) LA Diam 2.85 cm (1.9-4.0) LVDd 4.33 cm (3.5-5.7) Ao Diam 3.02 cm (2.0-3.7) LVDs 2.98 cm (3.5-5.7) IVSd 0.80 cm (0.6-1.1) PWd 0.60 cm (0.6-1.1) EF (Teich) 59.20% FS 31.20% EDV (Teich) 84.40 mL ESV (Teich) 34.40 mL LV Diastology E Decel Time 153.00 (160-240 msec) E/A Ratio 1.2 MED E' 14.90 (< 7 cm/sec) E'/MED E' Ratio 4.46 (>14) LAT E' 11.40 (<10 cm/sec) E/LAT E' Ratio 5.83 (>14) Mitral Valve MV E Max Julius. 66.00 (40-130 cm/s) MV A Velocity 56.00 (40-130 cm/s) E/A Ratio 1.19 MV Decel. Time 153.00 (160-240 ms) MV PHT 45.00 ms Pulmonary Valve PV Peak Velocity 99.00 (50-150 cm/s) Tricuspid Valve TR P. Velocity 161.00 cm/s Left Ventricle Technically difficult study, normal left ventricular size, preserved left ventricular systolic function, visually estimated ejection fraction 55% with no regional wall motion abnormality, diastolic parameters are within normal range. Right Ventricle Right atrium and right ventricle are normal size and contractility. Aortic Valve Aortic valve is grossly normal, there is no aortic stenosis or aortic insufficiency. Mitral Valve Mitral valve is grossly normal, there is mild mitral regurgitation. Tricuspid Valve Tricuspid valve is grossly normal, there is mild tricuspid regurgitation, tricuspid regurgitation jet velocity is inadequate for calculation of the right ventricular systolic pressure. Pulmonic Valve Pulmonic valve is poorly visualized. Great Vessels Aortic root is normal size. Pericardium No significant pericardial effusion noted. Conclusion 1. Normal left ventricular size, preserved left ventricular systolic function, visually estimated ejection fraction 55% with no regional wall motion abnormality, diastolic parameters are within normal range. 2. Mild mitral and tricuspid regurgitation. 3. No significant pericardial effusion noted. Electronically signed by : Carlin Rajput, 01/26/2020 13:00:53
--- NOTE | 2020-01-25 15:43 | CT_ITS ---
PROCEDURE: CT ANGIO CHEST CLINCIAL INDICATION: chest pain Right-sided chest pain COMPARISON: CT CHESTW CT chest w con from 05/20/2018 TECHNIQUE: IV Contrast: 70ML Isovue 370 Axial images obtained with sagittal and coronal reformats. All CT scans at the facility use one or more dose reduction, viz: automated exposure control, ma/kV adjustment per patient size (including targeted exams where dose is matched to indication, i.e. head), or iterative reconstruction technique. FINDINGS: HEART AND MEDIASTINAL STRUCTURES: No evidence of pulmonary embolus, aortic aneurysm or dissection. No mediastinal or hilar mass. LUNGS AND PLEURAL SPACES: There is some minimal scarring in the apices. A 3 mm nodule is present in the right lower lobe laterally BONY STRUCTURES: No acute bony abnormalities apparent. UPPER ABDOMEN: Unremarkable. ADDITIONAL FINDINGS: Bilateral subpectoral implants IMPRESSION: No acute finding. No evidence of pulmonary embolus. Dictated by: Ehsan Perez MD 01/25/2020 16:53 Ehsan Perez MD in [place] 01/25/2020 16:53
[2020-01-25 17:11] LABS: Troponin I < 0.01 ng/ml (0.00-0.034)
== END ==
PROVIDERS: PCP Family Medicine; Visit Provider Nurse Practitioner Family
DX: R07.89 Other chest pain (principal); R06.02 Shortness of breath; R42 Dizziness and giddiness; I10 Essential (primary) hypertension
CPT/HCPCS: 36415; 71275; 84484; 93306; Q9967

== ENCOUNTER → 2020-01-25 15:34 | Outpatient (CLI) | payer OTHER, SELFPAY | PROVIDERS: Visit Provider Nurse Practitioner Family | DX: R06.02 Shortness of breath (principal) | CPT/HCPCS: 36415; 84484 ==

== ENCOUNTER 2021-05-24 01:27 | Emergency (ER) | payer OTHER, SELFPAY ==
[2021-05-24 01:29] VITALS: BP 127/96; PULSE 120; RESP 16; TEMP 37.1; O2SAT 98; BMI 26.9
--- NOTE | 2021-05-24 01:43 | CT_ITS ---
PROCEDURE INFORMATION: Exam: CTA Chest With Contrast Exam date and time: 05/24/2021 2:07 AM Age: 51 years old Clinical indication: Cough TECHNIQUE: Imaging protocol: Computed tomographic angiography of the chest with contrast. 3D rendering (Not supervised by radiologist): MIP and/or 3D reconstructed images were created by the technologist. Radiation optimization: All CT scans at this facility use at least one of these dose optimization techniques: automated exposure control; mA and/or kV adjustment per patient size (includes targeted exams where dose is matched to clinical indication); or iterative reconstruction. Contrast material: ISOVUE; Contrast volume: 70 ml; Contrast route: INTRAVENOUS (IV); COMPARISON: CT ANGIO CHEST 01/25/2020 4:10 PM FINDINGS: Pulmonary arteries: Normal. No pulmonary emboli. Aorta: Unremarkable. No aortic aneurysm. No aortic dissection. Lungs: Calcified granuloma in the lingula. No consolidation. Pleural spaces: Unremarkable. No pneumothorax. No pleural effusion. Heart: No significant coronary artery calcifications evident. Normal cardiac size. No pericardial effusion. Heart RV/LV ratio: The RV/LV ratio is normal. Lymph nodes: Calcified AP window lymph nodes. No lymphadenopathy. Liver: There is a diffuse decrease in hepatic parenchymal density, consistent with fatty infiltration. Gallbladder and bile ducts: There has been a cholecystectomy. Bones/joints: Unremarkable. No acute fracture. Soft tissues: Bilateral breast implants. IMPRESSION: 1. No pulmonary emboli. 2. Evidence for prior granulomatous disease. 3. Hepatic steatosis.
--- NOTE | 2021-05-24 01:43 | XR_ITS ---
PROCEDURE INFORMATION: Exam: XR Chest Exam date and time: 05/24/2021 1:57 AM Age: 51 years old Clinical indication: Cough TECHNIQUE: Imaging protocol: XR of the chest. Views: 2 views. COMPARISON: CT ANGIO CHEST 01/25/2020 4:10 PM FINDINGS: Lungs: Calcified granuloma left lower lung. No consolidation. Pleural spaces: Unremarkable. No pleural effusion. No pneumothorax. Heart/Mediastinum: Unremarkable. No cardiomegaly. Bones/joints: Unremarkable. Organs: There has been a cholecystectomy. IMPRESSION: No acute findings.
--- NOTE | 2021-05-24 02:02 | ECG_ITS ---
APPROVED REPORT Exam: Resting ECG HR:100 bpm ECG Measurements Heart Rate 100 AXES DC 142 P 68 QRSd 97 QRS 43 QT 333 T 62 QTc 390 Conclusion SINUS TACHYCARDIA ABNORMAL RHYTHM ECG UNCONFIRMED REPORT Electronically signed by : Rene Griffith MD 05/24/2021 09:56:07
--- NOTE | 2021-05-24 02:10 | HMH.EDSOB ---
ED Disposition Clinical Impression: Pneumonitis Reactive airway disease Qualifiers: Asthma severity: moderate Asthma persistence: persistent Asthma complication type: with acute exacerbation Qualified Code(s): J45.41 - Moderate persistent asthma with (acute) exacerbation Disposition: Home, Self-Care Condition on Discharge: Good Instructions: DI for Shortness of Breath Additional Instructions: fluids and use meds and call pcp for follo wup Prescriptions: Benzonatate [Benzonatate 100mg cap] 100 mg PO TID #30 cap Transmission Status: Pending to [id number] Minocycline HCl [Minocycline HCl 100mg Tab*] 100 mg PO BID #20 tab Transmission Status: Pending to [id number] predniSONE [Prednisone 20mg Tab] 20 mg PO BID #10 tab Transmission Status: Pending to [id number] Referrals: Santy Samson [Primary Care Provider] - - Critical Care Critical Care Time: No Attestation: On 05/24/21, the high probability of a clinically significant, sudden or life threatening deterioration of the following system(s) required my full and direct attention, intervention and personal management. The time I documented below is in addition to time spent performing reported procedures but includes the following listed in this critical care notation. Medical Decision Making - Medical Records Medical records reviewed: Yes: I reviewed the patient's medical records. - Naveen Inquiry Pt receiving controlled substance: No Vital Signs: 05/24/21 01:29 Temperature 98.7 F Temperature Source Oral Pulse Rate [Left Radial] 120 H Respiratory Rate 16 Blood Pressure [Right Arm] 127/96 H Blood Pressure Mean [Right Arm] 106 02 Sat by Pulse Oximetry 98 Oxygen Delivery Method Room Air - Lab Data Lab results reviewed: Yes: I reviewed the patient's lab results. Lab Results 05/24/21 02:00: WBC 14.4 H, RBC 4.74, Hgb 14.1, Hct 42.6, MCV 90.0, MCH 29.8, MCHC 33.1, RDW 13.2, Plt Count 382, MPV 7.3 L, Neut % (Auto) 79.7, Lymph % (Auto) 9.0 L, [place] % (Auto) 5.9, Eos % (Auto) 3.4, Baso % (Auto) 2.1 H, Neut # (Auto) 11.5 H, Lymph # (Auto) 1.3, [place] # (Auto) 0.8, Eos # (Auto) 0.5 H, Baso # (Auto) 0.3 H 05/24/21 02:00: Sodium 137, Potassium 3.4 L, Chloride 103, Carbon Dioxide 27, Anion Gap 10.4, BUN 14, Creatinine 0.50 L, Estimated Creat Clear 142, Estimated GFR 131, Est GFR ( Amer) 158, Glucose 113 H, Calcium 9.2, Total Bilirubin 0.4, AST 81 H, ALT 170 H, Alkaline Phosphatase 108, Troponin I < 0.01, C-Reactive Protein 22.2 H, Total Protein 7.2, Albumin 4.3, Globulin 2.9, Albumin/Globulin Ratio 1.5, Procalcitonin 0.057 05/24/21 02:00: ESR 9 05/24/21 02:00: Lactate 0.8 05/24/21 02:00: Mycoplasma pneumon IgM Non-reactive 05/24/21 02:28: Chlamy pneumoniae PCR Not detected, Adenovirus (PCR) Not detected, B. pertussis DNA (PCR) Not detected, Coronavirus OC43 (PCR) Not detected, Coronavirus HKU1 (PCR) Not detected, Coronavirus 229E (PCR) Not detected, SARS-CoV-2 (PCR) Not detected, Coronavirus NL63 (PCR) Not detected, Human Metapneumovir PCR Not detected, Influenza A (H1) PCR Not detected, Influ A (H1N1/09) PCR Not detected, Influenza A (H3) PCR Not detected, Influenza Type A (PCR) Not detected, Influenza Type B (PCR) Not detected, M. pneumoniae (PCR) Not detected, Parainfluenza 1 (PCR) Not detected, Parainfluenza 2 (PCR) Not detected, Parainfluenza 3 (PCR) Not detected, Parainfluenza 4 (PCR) Not detected, RSV (PCR) Not detected, Entero/Rhino (PCR) Detected A Result diagrams: 05/24/21 02:00 05/24/21 02:00 Orders (Tests/Meds): ED MEDICATIONS Generic Name Dose Route Start Last Admin Trade Name Freq PRN Reason Stop Dose Admin Benzonatate 200 mg 05/24/21 06:00 05/24/21 05:59 Benzonatate 100mg Capsule PO 06/23/21 05:59 200 mg ONCE FER Administration Sodium Chloride 1,000 mls @ 999 mls/hr 05/24/21 01:45 05/24/21 01:51 Sod Chlor 0.9% 1000ml Bag IV 05/24/21 02:45 999 mls/hr .Q1H1M FER Administration D
[2021-05-24 02:15] LABS: Basophils # 0.3 K/mm3 (0-0.2); Basophils % 2.1 % (0.1-2.0); Eosinophils # 0.5 K/mm3 (0.0-0.4); Eosinophils % 3.4 % (0.1-12.0); Hematocrit 42.6 % (37.0-47.0); Hemoglobin 14.1 g/dL (12.2-16.2); Lymphocytes # 1.3 K/mm3 (0.7-4.5); Mean Corpuscular HGB Conc 33.1 g/dL (31.8-35.4); Mean Corpuscular Hemoglobin 29.8 pg (27.0-31.2); Mean Platelet Volume 7.3 fl (7.4-10.4); Monocytes # 0.8 K/mm3 (0.1-1.0); Monocytes % 5.9 % (1.7-9.3); Neutrophils # 11.5 K/mm3 (1.8-7.8); Neutrophils % 79.7 % (37.0-80.0); Platelet Count 382 K/mm3 (142-424); Red Blood Count 4.74 M/mm3 (4.20-5.40); Red Cell Distribution Width 13.2 % (11.5-17.5); White Blood Count 14.4 K/mm3 (4.8-10.8)
[2021-05-24 02:21] LABS: Alanine Aminotransferase 170 U/L (12-78); Albumin Level 4.3 g/dl (3.5-5.0); Albumin/Globulin Ratio 1.5 (1.1-1.8); Alkaline Phosphatase 108 U/L (38-126); Anion Gap 10.4 mEq/L (5-15); Aspartate Amino Transferase 81 U/L (14-36); Bilirubin,Total 0.4 mg/dl (0.2-1.3); Blood Urea Nitrogen 14 mg/dl (7-17); Calcium 9.2 mg/dl (8.4-10.2); Carbon Dioxide 27 mmol/L (22.0-30.0); Chloride 103 mmol/L (98-107); Creatinine Clearance Estimated 142 mL/min (50-200); Estimated Glomerular Filt Rate 131 ml/min (>60); GFR (African American) 158 ML/MIN (>60); Globulin 2.9 g/dL (1.3-3.2); Glucose 113 mg/dl (74-100); Lactic Acid 0.8 mmol/L (0.7-2.1); Potassium 3.4 mmoL/L (3.5-5.1); Sodium 137 mmol/L (136-145); Total Protein,Serum 7.2 g/dl (6.3-8.2)
[2021-05-24 02:26] LABS: C-Reactive Protein 22.2 mg/L (0-4)
[2021-05-24 02:36] LABS: Adenovirus,PCR Not Detected (NotDetected); Bordetella Pertussis Not Detected (NotDetected); Chlamydophila Pneumoniae, PCR Not Detected (NotDetected); Coronavirus 19, PCR Not Detected (NotDetected); Coronavirus 229E Not Detected (NotDetected); Coronavirus NL63 Not Detected (NotDetected); Coronavirus OC43 Not Detected (NotDetected); Coronovirus HKU1,PCR Not Detected (NotDetected); Human Metapneumovirus Not Detected (NotDetected); Influenza A, PCR Not Detected (NotDetected); Influenza AH1, 2009 Not Detected (NotDetected); Influenza AH1, PCR Not Detected (NotDetected); Influenza AH3,PCR Not Detected (NotDetected); Influenza B, PCR Not Detected (NotDetected); Mycoplasma Pneumoniae, PCR Not Detected (NotDetected); Parainfluenza 1, PCR Not Detected (NotDetected); Parainfluenza 2, PCR Not Detected (NotDetected); Parainfluenza 3, PCR Not Detected (NotDetected); Parainfluenza 4, PCR Not Detected (NotDetected); Respiratory Syncytial Virus Not Detected (NotDetected)
[2021-05-24 02:37] LABS: Erythrocyte Sedimentation Rate 9 mm/hr (0-20)
[2021-05-24 02:38] LABS: Troponin I < 0.01 ng/ml (0.00-0.034)
[2021-05-24 02:40] LABS: Procalcitonin 0.057 ng/mL (0.0-2.0)
[2021-05-24 04:20] LABS: Rhinovirus/Enterovirus Detected (NotDetected)
--- NOTE | 2021-05-24 04:22 | CT_ITS ---
PROCEDURE INFORMATION: Exam: CT Neck With Contrast Exam date and time: 05/24/2021 4:28 AM Age: 51 years old Clinical indication: Condition or disease; Cancer; Prior surgery; Surgery type: PT states partial removal of thyroid; Patient HX: PT states her throat feels funny ; Additional info: HX thyroid cancer TECHNIQUE: Imaging protocol: Computed tomography images of the neck with contrast. Radiation optimization: All CT scans at this facility use at least one of these dose optimization techniques: automated exposure control; mA and/or kV adjustment per patient size (includes targeted exams where dose is matched to clinical indication); or iterative reconstruction. Contrast material: ISOVUE; Contrast volume: 75 ml; Contrast route: IV; COMPARISON: NECKW CT SOFT TISSUE NECK W/CONTRAST 07/15/2016 9:58 AM FINDINGS: Nasopharynx: Unremarkable. Oropharynx: Unremarkable. No significant tonsillar enlargement. Hypopharynx: Unremarkable. Larynx: Unremarkable. Normal epiglottis. Retropharyngeal space: Unremarkable. Submandibular/Parotid glands: Normal. Glands are normal in size. Thyroid: No thyroid tissue identified. Lymph nodes: Unremarkable. No lymphadenopathy. Trachea: Visualized trachea is unremarkable. Lungs: Unremarkable as visualized. Bones/joints: Degenerative changes of the spine. Vasculature: The aorta demonstrates mild atherosclerotic calcification. Soft tissues: Unremarkable. No significant soft tissue swelling. IMPRESSION: Prior thyroidectomy, no acute findings.
[2021-05-24 05:41] LABS: Mycoplasma Pneumo IGM (Rapid) Non-Reactive (Non-Reactiv)
[2021-05-24 06:35] VITALS: BP 112/63; PULSE 108; O2SAT 97
--- NOTE | 2021-05-24 07:09 | PC.NURSE ---
pt resting iv antibiotics infusing pt denied any c/o at present
[2021-05-24 07:36] VITALS: BP 107/60; PULSE 110; RESP 18; TEMP 36.6; O2SAT 98
== END 2021-05-24 07:38 | disposition home or self-care (01) ==
PROVIDERS: Emergency Provider Emergency Medicine; PCP Family Medicine
DX: J45.41 Moderate persistent asthma with (acute) exacerbation (principal); J18.9 Pneumonia, unspecified organism; K21.9 Gastro-esophageal reflux disease without esophagitis; E78.5 Hyperlipidemia, unspecified; F17.210 Nicotine dependence, cigarettes, uncomplicated; Z79.899 Other long term (current) drug therapy
CPT/HCPCS: 70491; 71046; 71275; 80053; 83605; 84145; 84484; 85025; 85651; 86140; 86738; 87040; 87581; 87632; 87798; 93005; 96365; 96367; 96375; 99284; C9803; J2405; Q9967; U0003; U0005

== ENCOUNTER → 2022-10-16 13:32 | Outpatient (CLI) | payer SELFPAY ==
--- NOTE | 2022-10-16 13:46 | XR_ITS ---
FINAL REPORT CLINICAL HISTORY: LOW BACK PAIN FINDINGS: SPINE LUMBOSACRAL MIN 4 VIEWS Five views were obtained. There is no acute fracture or subluxation. There are mild degenerative changes with small osteophytes. There is no malalignment. IMPRESSION: Mild degenerative changes. Reviewed, Interpreted and Dictated by Hola Donnelly III, MD Transcribed by Melissa Lehman Authenticated and [facility]
--- NOTE | 2022-10-16 13:46 | XR_ITS ---
FINAL REPORT CLINICAL HISTORY: HIP PAIN FINDINGS: Left hip Three views were obtained. There is no fracture or dislocation. There are mild degenerative changes. No soft tissue abnormality is identified. IMPRESSION: Mild degenerative changes. Reviewed, Interpreted and Dictated by Hola Donnelly III, MD Transcribed by Melissa Lehman Authenticated and . [facility]
== END ==
LOC: RAD 13:33
PROVIDERS: PCP Family Medicine; Visit Provider Family Medicine
DX: M54.50 Low back pain, unspecified (principal); M25.552 Pain in left hip
CPT/HCPCS: 72110; 73502

== ENCOUNTER → 2022-11-06 12:15 | Outpatient (CLI) | payer SELFPAY ==
--- NOTE | 2022-11-06 12:27 | XR_ITS ---
FINAL REPORT CLINICAL HISTORY: right hip pain worse than left FINDINGS: AP and frog leg views of the right hip were obtained. There is no prior exam for comparison. There is no acute fracture or dislocation. There is degenerative joint disease bilaterally. Soft tissues are within normal limits. IMPRESSION: Degenerative joint disease bilaterally. Reviewed, Interpreted and Dictated by Ivanna Cruz MD Transcribed by Melissa Lehman Authenticated and [facility]
--- NOTE | 2022-11-06 12:27 | CT_ITS ---
FINAL REPORT TECHNIQUE: Thin section axial images were obtained from the lung apices through the upper abdomen without contrast. This study was performed with techniques to keep radiation doses as low as reasonably achievable (ALARA). Individualized dose reduction techniques using automated exposure control or adjustment of mA and/or kV according to the patient's size were employed. CLINICAL HISTORY: pulmonary nodules COMPARISON: 05/24/2021 FINDINGS: There is no mediastinal, hilar, or axillary lymphadenopathy. No pleural or pericardial effusion. There is evidence of prior granulomatous disease. There is a focal area of subpleural ground-glass opacity in the anterior right lower lobe which could be infectious or inflammatory. No suspicious nodules identified. Limited, unenhanced evaluation of the upper abdomen is without acute abnormality. There is no acute osseous abnormality. IMPRESSION: Ground-glass opacity in the right lower lobe, favor infectious or inflammatory. Reviewed, Interpreted and Dictated by Ivanna Cruz MD Transcribed by Melissa Lehman Authenticated and [facility]
[2022-11-06 13:11] LABS: Basophils # 0.1 K/mm3 (0-0.2); Basophils % 0.7 % (0.1-2.0); Eosinophils # 0.4 K/mm3 (0.0-0.4); Eosinophils % 4.4 % (0.1-12.0); Hematocrit 45.6 % (37.0-47.0); Hemoglobin 14.3 g/dL (12.2-16.2); Lymphocytes # 1.9 K/mm3 (0.7-4.5); Lymphocytes % 20.5 % (10-50); Mean Corpuscular HGB Conc 31.3 g/dL (31.8-35.4); Mean Corpuscular Hemoglobin 28.1 pg (27.0-31.2); Mean Corpuscular Volume 89.7 fl (81-99); Mean Platelet Volume 7.5 fl (7.4-10.4); Monocytes # 0.7 K/mm3 (0.1-1.0); Neutrophils # 6.1 K/mm3 (1.8-7.8); Neutrophils % 66.4 % (37.0-80.0); Platelet Count 354 K/mm3 (142-424); Red Blood Count 5.08 M/mm3 (4.20-5.40); White Blood Count 9.1 K/mm3 (4.8-10.8)
[2022-11-06 13:53] LABS: Alanine Aminotransferase 58 U/L (12-78); Albumin Level 4.5 g/dl (3.5-5.0); Alkaline Phosphatase 111 U/L (38-126); Anion Gap 11.5 mEq/L (5-15); Aspartate Amino Transferase 43 U/L (14-36); Bilirubin,Direct 0.2 mg/dl (0.0-0.4); Bilirubin,Indirect 0.3 mg/dL (0.0-0.9); Bilirubin,Total 0.5 mg/dl (0.2-1.3); Bilirubin,Unconjugated 0.3 mg/dL (0.0-1.1); Blood Urea Nitrogen 15 mg/dl (7-17); Calcium 9.3 mg/dl (8.4-10.2); Carbon Dioxide 28 mmol/L (22.0-30.0); Chloride 104 mmol/L (98-107); Creatine Kinase 60 U/L (30-135); Estimated Glomerular Filt Rate 88 ml/min (>60); GFR (African American) 107 ML/MIN (>60); Glucose 89 mg/dl (74-100); Potassium 4.5 mmoL/L (3.5-5.1); Sodium 139 mmol/L (136-145); Total Protein,Serum 7.5 g/dl (6.3-8.2)
[2022-11-06 14:05] LABS: Erythrocyte Sedimentation Rate 8 mm/hr (0-30)
[2022-11-06 14:09] LABS: Free T4 (Free Thyroxine) 1.76 ng/dl (0.78-2.19)
[2022-11-06 14:22] LABS: Thyroid Stimulating Hormone 0.94 uIU/mL (0.465-4.68)
[2022-11-08 09:09] LABS: C-Reactive Protein 8.1 mg/L (0-4)
== END ==
LOC: LAB 12:16
PROVIDERS: PCP Family Medicine; Visit Provider Internal Medicine
DX: R07.9 Chest pain, unspecified (principal); R06.02 Shortness of breath; R06.00 Dyspnea, unspecified; M25.551 Pain in right hip; M25.552 Pain in left hip; I10 Essential (primary) hypertension; M79.606 Pain in leg, unspecified; R91.8 Other nonspecific abnormal finding of lung field; I63.9 Cerebral infarction, unspecified; E11.9 Type 2 diabetes mellitus without complications
CPT/HCPCS: 36415; 71250; 73502; 80048; 80076; 82550; 84439; 84443; 85025; 85651; 86140

== ENCOUNTER → 2022-11-07 12:05 | Outpatient (CLI) | payer SELFPAY ==
--- NOTE | 2022-11-07 12:06 | NM_ITS ---
FINAL REPORT CLINICAL HISTORY: bilateral shoulder pain, bilateral hip pain, COMPARISON: Hip and lumbar spine radiographs dated 10/16/2022 FINDINGS: EXISTING RELEVANT IMAGING STUDIES: TECHNIQUE: The patient was injected with 26.5 mCi of technetium [id number]. 3 hour delayed images were obtained. FINDINGS: There are areas of increased tracer activity involving the shoulders, spines, hips, knees, ankles, and feet. Findings are symmetric and felt to be most likely due to degenerative change. There is no other abnormal area of tracer activity. IMPRESSION: Findings most likely related to degenerative change. Reviewed, Interpreted and Dictated by Hola Donnelly III, MD Transcribed by Bruna Rivera Authenticated and . [facility]
== END ==
PROVIDERS: PCP Internal Medicine; Visit Provider Internal Medicine
DX: I10 Essential (primary) hypertension (principal); M25.511 Pain in right shoulder; M25.512 Pain in left shoulder; M25.551 Pain in right hip; M25.552 Pain in left hip; M79.606 Pain in leg, unspecified; R06.02 Shortness of breath; R07.9 Chest pain, unspecified; R91.8 Other nonspecific abnormal finding of lung field; Z87.891 Personal history of nicotine dependence
CPT/HCPCS: 78306; A9503

== ENCOUNTER 2023-07-22 13:32 | Observation (INO) | payer SELFPAY ==
--- NOTE | 2023-07-22 13:41 | PC.NURSE ---
walked to floor from front lobby admissions
[2023-07-22 14:16] VITALS: BMI 23.6
--- NOTE | 2023-07-22 14:16 | HMH.PHAINT1 ---
Pharmacy Intervention Comments: HOME MEDICATION LIST VERIFIED USING LIST FROM OUTPATIENT PHARMACY AND PT INTERVIEW
[2023-07-22 14:17] VITALS: BP 132/95; PULSE 85; RESP 21; TEMP 36.5; O2SAT 96
[2023-07-22 15:47] VITALS: BP 135/81; PULSE 90; RESP 21; TEMP 36.7; O2SAT 96
--- NOTE | 2023-07-22 16:02 | CT_ITS ---
PROCEDURE INFORMATION: Exam: CT Head Without Contrast Exam date and time: 07/22/2023 4:22 PM Age: 53 years old Clinical indication: Altered mental status/memory loss; Additional info: AMS TECHNIQUE: Imaging protocol: Computed tomography of the head without contrast. Radiation optimization: All CT scans at this facility use at least one of these dose optimization techniques: automated exposure control; mA and/or kV adjustment per patient size (includes targeted exams where dose is matched to clinical indication); or iterative reconstruction. COMPARISON: NM BONE SCAN WHOLE BODY 11/07/2022 4:16 PM FINDINGS: Brain: No hemorrhage. Unremarkable white matter for the patient's age. No mass effect. No evolving territorial infarct. Cerebral ventricles: No ventriculomegaly. Paranasal sinuses: Mild mucosal thickening in the paranasal sinuses. Trace fluid in the left maxillary sinus. Mastoid air cells: Visualized mastoid air cells are well aerated. Bones: No acute fracture seen. Prior surgical fixation of the left mandible, partially visualized. Soft tissues: Unremarkable. IMPRESSION: No acute intracranial abnormality seen.
[2023-07-22 16:24] LABS: Lactic Acid 0.7 mmol/L (0.7-2.1)
[2023-07-22 16:40] LABS: Troponin I < 0.01 ng/ml (0.00-0.034)
[2023-07-22] MEDS: ACETAMINOPHEN 325MG TAB 650 MG PO (16:51)
--- NOTE | 2023-07-22 17:19 | XR_ITS ---
PROCEDURE INFORMATION: Exam: XR Chest Exam date and time: 07/22/2023 8:02 PM Age: 53 years old Clinical indication: Cough and shortness of breath; Additional info: SOB, cough TECHNIQUE: Imaging protocol: Radiologic exam of the chest. Views: 1 view. COMPARISON: CT CHEST WO CON 06/11/2022 12:34 FINDINGS: Lungs: Stigmata of old granulomatous disease. Pleural spaces: Unremarkable. No pleural effusion. No pneumothorax. Heart/Mediastinum: Unremarkable. No cardiomegaly. Bones/joints: Unremarkable. IMPRESSION: No acute findings.
--- NOTE | 2023-07-22 17:25 | P.HP_ITS ---
History of Present Illness *Admission Date: 07/22/23 *Reason for visit:: fever *History of present illness: Patient is a 53-year-old female with past medical history of hypertension who presented to hospital for generalized weakness fevers since last Thursday according to the patient she had tick bite she noticed on Thursday, patient is unsure how long she had tick attached to the back of her left leg, she denies associated itching or rash. Patient also having cough, productive of yellowish phlegm. Patient otherwise denies diarrhea constipation dysuria, denies chest pain shortness of breath. [facility] Disclaimer: The information contained in this section may have been updated after the patient was seen, as this information can be updated by other users. Medical History (Updated 07/22/23 @ 17:26 by Jazmine Martell MD) Breast implant in situ Cholecystectomy planned Breast mass Back pain Neck pain Otitis media Tobacco dependence syndrome Dizziness SOB (shortness of breath) Tachycardia Multiple pulmonary nodules Thyroid cancer Stress at home Palpitations Chest pain Surgical History (Updated 07/22/23 @ 14:23 by Meena Owen) History of mandibular surgery History of thyroid surgery Family History (Updated 07/22/23 @ 14:25 by Meena Owen) Other Family history of acute heart failure Family history of diabetes mellitus type II Family history of hypothyroidism Family history of stroke Social History (Updated 07/22/23 @ 14:25 by Meena Owen) Smoking Status: Never smoker second hand exposure: Yes alcohol intake: never current occupational status: employed Travel in the last 8 weeks: Inside the [place] household members: spouse housing: house current occupational exposures/hazards: No caffeine: Yes Review of Systems Review of Systems Review of systems:: pertinent systems reviewed and negative unless documented below Meds Home Medications and Allergies Home Medications Medication Instructions Recorded Confirmed Type estradiol 1 mg tablet 2 mg PO DAILY 11/04/17 07/22/23 History omeprazole 20 mg capsule,delayed 20 mg PO BID 11/04/17 07/22/23 History release levothyroxine 125 mcg tablet 250 mcg PO DAILY 08/01/20 07/22/23 History losartan 50 mg tablet 50 mg PO DAILY 11/06/22 07/22/23 History calcitriol 0.25 mcg capsule 0.25 mcg PO DAILY 07/22/23 07/22/23 History New Prescriptions to Start Prescriptions: Allergies Allergy/AdvReac Type Severity Reaction Status Date / Time No Known Allergies Allergy Verified 11/06/22 11:48 Exam Data for Last 24 hours Vital signs and Labs for Last 24 Hours: Temp Pulse Resp BP Pulse Ox O2 Del Method 98.1 F 90 21 135/81 96 Room Air 07/22/23 15:47 07/22/23 15:47 07/22/23 15:47 07/22/23 15:47 07/22/23 15:47 07/22/23 15:47 Laboratory Results - last 24 hr 07/22/23 16:05: Lactate 0.7, Troponin I < 0.01 I & O for Last 24 hours: Intake & Output 07/19/23 07/20/23 07/21/23 07/22/23 23:59 23:59 23:59 23:59 Intake Total 360 / 360 Output Total 0 / 0 Balance 360 / 360 Weight 58.598 kg Constitutional Constitutional: no acute distress *Routine HEENT Exam Head: Present normocephalic Eye: Present EOMI and PERRL ENT: Present mucous membranes moist *Routine Neck Exam Neck: Present supple; Absent lymphadenopathy *Routine Respiratory Exam Respiratory: Present CTA bilaterally *Routine Cardiovascular Exam Cardiovascular: Present RRR *Routine Abdominal Exam Abdominal: Present soft and normoactive bowel sounds; Absent tenderness *Routine Rectal Exam Rectal:: deferred *Routine Genitalia Exam Genitalia:: deferred *Routine Extremities Exam Extremities: Absent cyanosis, clubbing or edema *Routine Skin Exam Skin: Present warm; Absent rash *Routine Neurological Exam Neurological: Present alert and oriented X3 Assessment and Plan *Assessment and plan (1) Generalized weakness: Status: Acute Category: Medical Code(s): R53.1 - Weakness (2) Fever: Status: Acute Category: Medical Code(s): R50.9 - Fever, unspecified (3) Cough: Status: Acute Category: Medical Code(s): R05.9 - Cough, unspecified (4) Tick bite: Status: Acute Category: Medical Code(s): W57.XXXA - Bitten or stung by nonvenomous insect and other nonvenomous arthropods, initial encounter Plan Patient is a 53-year-old female with past medical history of hypertension who presented to hospital for generalized weakness fevers since last Thursday according to the patient she had tick bite she noticed on [place], patient is unsure how long she had tick attached to the back of her left leg, she denies associated itching or rash. Patient also having cough, productive of yellowish phlegm. Patient otherwise denies diarrhea constipation dysuria, denies chest pain shortness of breath. Assessment and plan Generalized weakness, fevers, fatigue, cough-unclear etiology Tick bite Differential diagnosis includes Ehrlichiosis, Lymes Disease, Viral illeness Check CBC BMP LFTs, UA, check chest x-ray, check rapid flu, covid Ag testing CT head performed-negative for acute neurologic process Check blood cultures Holding off of empirical antibiotics for now until further results Hypertension Resume home losartan DVT prophylaxis-Lovenox
[2023-07-22] MEDS: ENOXAPARIN 40MG/0.4ML SYRINGE 40 MG SQ (17:53)
[2023-07-22 18:00] LABS: Coronavirus 19, PCR Not Detected (NotDetected); Influenza A, PCR Not Detected (NotDetected); Influenza B, PCR Not Detected (NotDetected)
[2023-07-22 18:01] LABS: Basophils # 0.1 K/mm3 (0-0.2); Basophils % 1.3 % (0.1-2.0); Chloride 104 mmol/L (98-107); Eosinophils # 0.5 K/mm3 (0.0-0.4); Eosinophils % 8.5 % (0.1-12.0); Hematocrit 40.8 % (37.0-47.0); Hemoglobin 13.3 g/dL (12.2-16.2); Lymphocytes # 1.5 K/mm3 (0.7-4.5); Mean Corpuscular HGB Conc 32.7 g/dL (31.8-35.4); Mean Corpuscular Volume 88.9 fl (81-99); Mean Platelet Volume 7.5 fl (7.4-10.4); Monocytes # 0.5 K/mm3 (0.1-1.0); Neutrophils # 2.9 K/mm3 (1.8-7.8); Neutrophils % 53.3 % (37.0-80.0); Platelet Count 276 K/mm3 (142-424); Potassium 3.2 mmoL/L (3.5-5.1); Red Blood Count 4.59 M/mm3 (4.20-5.40); Red Cell Distribution Width 13.5 % (11.5-17.5); Sodium 139 mmol/L (136-145); White Blood Count 5.5 K/mm3 (4.8-10.8)
[2023-07-22 18:04] LABS: Anion Gap 9.2 mEq/L (5-15); Blood Urea Nitrogen 9 mg/dl (7-17); Calcium 8.4 mg/dl (8.4-10.2); Carbon Dioxide 29 mmol/L (22.0-30.0); Creatinine Clearance Estimated 101 mL/min (50-200); Estimated Glomerular Filt Rate 105 ml/min (>60); GFR (African American) 127 ML/MIN (>60); Glucose 108 mg/dl (74-100)
[2023-07-22 18:15] LABS: Alanine Aminotransferase 119 U/L (12-78); Alkaline Phosphatase 114 U/L (38-126); Aspartate Amino Transferase 65 U/L (14-36); Bilirubin,Indirect 0.2 mg/dL (0.0-0.9); Bilirubin,Total 0.2 mg/dl (0.2-1.3); Bilirubin,Unconjugated 0.2 mg/dL (0.0-1.1)
[2023-07-22 18:16] LABS: Albumin Level 3.7 g/dl (3.5-5.0); Total Protein,Serum 6.3 g/dl (6.3-8.2)
[2023-07-22 19:50] VITALS: BP 120/70; PULSE 80; RESP 16; TEMP 36.8; O2SAT 98
[2023-07-22 20:38] VITALS: O2SAT 98
[2023-07-22] MEDS: PANTOPRAZOLE 40MG TABLET 40 MG PO (20:38)
[2023-07-23] VITALS: BP 118/70; PULSE 78; RESP 16; TEMP 36.8; O2SAT 97
[2023-07-23] MEDS: ACETAMINOPHEN 325MG TAB 650 MG PO (02:44)
[2023-07-23] MEDS: ONDANSETRON 4MG/2ML VIAL 4 MG IV (02:46)
[2023-07-23] MEDS: METOCLOPRAMIDE HCL 10MG/2ML VIAL 5 MG IVP (03:47)
[2023-07-23] MEDS: diphenhydrAMINE 50MG/ML VIAL 12.5 MG IV (03:47)
[2023-07-23 04:00] VITALS: BP 131/80; PULSE 79; RESP 16; TEMP 37.1; O2SAT 94; BMI 23.8
--- NOTE | 2023-07-23 04:50 | PC.NURSE ---
Patient alert and oriented x4 this shift. Tolerating room air well. Patient has gotten up to use restroom x1 assist through shift. Complaints of generalized weakness, headache, and nausea. Headache was unrelieved by Acetaminophen and received new orders per hospitalist. Administered per MAR and patient states she is feeling better. No new complaints this shift. Call light within reach.
[2023-07-23 06:32] LABS: Chloride 103 mmol/L (98-107); Potassium 3.6 mmoL/L (3.5-5.1); Sodium 138 mmol/L (136-145)
[2023-07-23 06:35] LABS: Anion Gap 7.6 mEq/L (5-15); Blood Urea Nitrogen 13 mg/dl (7-17); Calcium 8.2 mg/dl (8.4-10.2); Carbon Dioxide 31 mmol/L (22.0-30.0); Creatinine Clearance Estimated 101 mL/min (50-200); Estimated Glomerular Filt Rate 105 ml/min (>60); GFR (African American) 127 ML/MIN (>60); Glucose 91 mg/dl (74-100); Magnesium 1.9 mg/dl (1.6-2.3)
[2023-07-23] MEDS: CEFTRIAXONE SODIUM 1 GM in 0.9 % SODIUM CHLORIDE 50 ML IV (06:52)
[2023-07-23 08:00] VITALS: BP 122/74; PULSE 78; RESP 16; TEMP 36.6; O2SAT 94
[2023-07-23 08:02] LABS: Basophils # 0.1 K/mm3 (0-0.2); Basophils % 1.3 % (0.1-2.0); Eosinophils # 0.6 K/mm3 (0.0-0.4); Eosinophils % 11.7 % (0.1-12.0); Hematocrit 36.2 % (37.0-47.0); Hemoglobin 13.6 g/dL (12.2-16.2); Lymphocytes # 1.6 K/mm3 (0.7-4.5); Lymphocytes % 33.5 % (10-50); Mean Corpuscular HGB Conc 37.5 g/dL (31.8-35.4); Mean Corpuscular Hemoglobin 34.2 pg (27.0-31.2); Mean Platelet Volume 7.6 fl (7.4-10.4); Monocytes # 0.6 K/mm3 (0.1-1.0); Monocytes % 12.2 % (1.7-9.3); Neutrophils % 41.4 % (37.0-80.0); Platelet Count 262 K/mm3 (142-424); Red Blood Count 3.97 M/mm3 (4.20-5.40); Red Cell Distribution Width 13.7 % (11.5-17.5); White Blood Count 4.8 K/mm3 (4.8-10.8)
[2023-07-23] MEDS: PANTOPRAZOLE 40MG TABLET 40 MG PO (08:24)
[2023-07-23] MEDS: IRBESARTAN 75MG TABLET 75 MG PO (08:24)
[2023-07-23] MEDS: ENOXAPARIN 40MG/0.4ML SYRINGE 40 MG SQ (08:24)
--- NOTE | 2023-07-23 09:52 | HMH.PTEV ---
Physical Therapy Evaluation Rehab PT IP Evaluation Start: 07/23/23 09:33 Freq: ONCE Status: Active Protocol: Document 07/23/23 09:49 SANTI (Rec: 07/23/23 09:52 SANTI [id number]) Subjective/History History History 53 yowf adm to [facility] with ~ 1 wk of fevers and weakness after possible tick bite. She reports she lives with her , 1 JL the home, she still works outside the home, and is independent with all mobility and ADLs at baseline. Subjective Subjective Pt reports feeling much better overall, but remains mildly weak. She agrees to mobility assessment. New diagnosis of cancer in past 12 No months? Rehab PT IP Eval Objective Appearance Patient Behavior Appropriate Patient Orientation Person,Place,Time Difficulty following instructions none Speech Pattern Clear Ambulation Patient Able to Ambulate Yes Ambulation Observation IP General Gait Pattern Observation No Deviations/Normal Ambulation Distance (feet) 100 Ambulation Assistive Device None Ambulation Ability Independent Balance Ability to Arise Able, w/o using arms Sitting Balance Steady, safe Standing Balance Narrow stance w/o support Dynamic Sitting Balance Ability Normal Dynamic Standing Balance Ability Normal Transfers Bed Transfer Ability Independent Chair Transfer Ability Independent Sit to Stand Bed Transfer Ability Independent Sit to Stand Chair Transfer Ability Independent Rehab PT IP prob,goals,plan Problems Date of Evaluation: 07/23/23 Discharge Plan PT Discharge Plan Pt appears to be at baseline for all mobility at this time and is appropriate to return home once medically stable for d/c. She has no current inpatient therapy needs. Eval Complexity Eval Charge Codes 85176 - Moderate Complexity PHYSICIAN CERTIFICATION: I certify the specified therapy services for Mel Washington are required, authorized, and reviewed every 30 days.
--- NOTE | 2023-07-23 10:08 | HMH.OTEV ---
OT Inpatient Evaluation Rehab OT IP Evaluation Start: 07/23/23 09:33 Freq: ONCE Status: Active Protocol: Document 07/23/23 10:05 MCKENZIE (Rec: 07/23/23 10:08 [facility] [id number]) Rehab OT IP Assessment Subjective History Pt oriented x3 on arrival. Pt agreeable to engage in therapy evaluation. Pt admitted on 07/22/23 due to weakness/tick bite. History and physical: Patient is a 53-year-old female with past medical history of hypertension who presented to hospital for generalized weakness fevers since last Thursday according to the patient she had tick bite she noticed on Thursday, patient is unsure how long she had tick attached to the back of her left leg, she denies associated itching or rash. Patient also having cough, productive of yellowish phlegm . Patient otherwise denies diarrhea constipation dysuria, denies chest pain shortness of breath Subjective I do feel better. Prior to being in the hospital , pt lived at home with her . Normally patient is independent with all ADLs and IADLs. She does not require any type of AE during functional mobility tasks. Pt also still worked fulltime. Pt still drove. Objective Patient Orientation Person,Place,Birthday Right Upper Extremity Gross ROM WNL Left Upper Extremity Gross ROM WNL Bed Mobility bed mobility-scooting,bed mobility - supine/sit Assist Level Supervision/Stand by Transfer Training Sit/Stand Transfer Assist Level Supervision/Stand by Lower Body Dressing Ability Standby Assistance Performing Toilet Hygiene Ability Standby Assistance Overall Commode/Toilet Transfer Ability Standby Assistance Commode/Toilet Transfer Technique Sit to/from Ambulatory Rehab OT IP prob,goals,plan Problems Date of Evaluation: 07/23/23 Rehab Potential Rehab Potential Innapropriate for Skilled Therapy Discharge Plan OT Discharge Plan Pt appears to be at her baseline with functional transfers and ADL independence . Pt can return home with once she is medically stable per physician. Eval Complexity Eval Charge Codes 60474 - Low Complexity PHYSICIAN CERTIFICATION: I certify the specified therapy services for Mel Washington are required, authorized, and reviewed every 30 days.
[2023-07-23] MEDS: 0.9 % SODIUM CHLORIDE 1000ML 500 ML 999 ML IV (10:23)
--- NOTE | 2023-07-23 15:34 | PC.NURSE ---
Patient resting in bed. Currently waiting for ride. Denies needs at this time
--- NOTE | 2023-07-24 14:43 | CARE MANAGER ---
Called and spoke with patient regarding recent discharge. Patient stated that she is feeling better and had no concerns or questions at time of call. She was aware of scheduled f/u appt.
--- NOTE | 2023-08-07 09:09 | EXP.DC.SUM ---
General Admission date:: 07/22/23 Discharge date: 07/23/23 HPI HPI HPI: Patient is a 53-year-old female with past medical history of hypertension who presented to hospital for generalized weakness fevers since last Thursday according to the patient she had tick bite she noticed on Thursday, patient is unsure how long she had tick attached to the back of her left leg, she denies associated itching or rash. Patient also having cough, productive of yellowish phlegm. Patient otherwise denies diarrhea constipation dysuria, denies chest pain shortness of breath. Hospital Course Hospital Course Hospital Course: Patient is a 53-year-old female with past medical history of hypertension who presented to hospital for generalized weakness fevers since last Thursday according to the patient she had tick bite she noticed on Thursday, patient is unsure how long she had tick attached to the back of her left leg, she denies associated itching or rash. Patient also having cough, productive of yellowish phlegm. Patient otherwise denies diarrhea constipation dysuria, denies chest pain shortness of breath. Assessment and plan Generalized weakness, fevers, fatigue, cough- likely viral URI etiology, patient mentions she feels better and does not have any other complains and requesting eddie dischagred Tick bite - clinically does not appear to be significant, however patient counselled on monitoring symptoms, patient also monitor rash and symtoms for incoming days and come to ED or f/u with PCP. On the date of discharge, the patient reported feeling stable. The patient was found not to be in any acute distress, and no new abnormalities on physical examination. Further, the patient expressed appropriate understanding of, and agreement with, the discharge recommendations, medications, and plan. Time spent 37 mins Exam Data for Last 24 hours Vital signs and Labs for Last 24 Hours: Temp Pulse Resp BP Pulse Ox O2 Del Method 97.8 F 78 16 122/74 94 L Room Air 07/23/23 08:00 07/23/23 08:00 07/23/23 08:00 07/23/23 08:00 07/23/23 08:00 07/23/23 15:00 Constitutional Constitutional: no acute distress *Routine HEENT Exam Head: Present normocephalic Eye: Present EOMI and PERRL ENT: Present mucous membranes moist *Routine Neck Exam Neck: Present supple; Absent lymphadenopathy *Routine Respiratory Exam Respiratory: Present CTA bilaterally *Routine Cardiovascular Exam Cardiovascular: Present RRR *Routine Abdominal Exam Abdominal: Present soft and normoactive bowel sounds; Absent tenderness *Routine Extremities Exam Extremities: Absent cyanosis, clubbing or edema *Routine Skin Exam Skin: Present warm; Absent rash *Routine Neurological Exam Neurological: Present alert and oriented X3 DS: Diagnosis Discharge Diagnosis (1) Generalized weakness: Status: Acute Code(s): R53.1 - Weakness (2) Fever: Status: Acute Code(s): R50.9 - Fever, unspecified (3) Cough: Status: Acute Code(s): R05.9 - Cough, unspecified (4) Tick bite: Status: Acute Code(s): W57.XXXA - Bitten or stung by nonvenomous insect and other nonvenomous arthropods, initial encounter Meds Home Medications and Allergies Home Medications Medication Instructions Recorded Confirmed Type estradiol 1 mg tablet 2 mg PO DAILY 11/04/17 07/22/23 History omeprazole 20 mg capsule,delayed 20 mg PO BID 11/04/17 07/22/23 History release levothyroxine 125 mcg tablet 250 mcg PO DAILY 08/01/20 07/22/23 History losartan 50 mg tablet 50 mg PO DAILY 11/06/22 07/22/23 History calcitriol 0.25 mcg capsule 0.25 mcg PO DAILY 07/22/23 07/22/23 History New Prescriptions to Start Prescriptions: Allergies Allergy/AdvReac Type Severity Reaction Status Date / Time No Known Allergies Allergy Verified 11/06/22 11:48 Discharge Plan Disposition Patient Disposition: Home, Self-Care Condition: Good Follow up Plan Follow up with: Fely Arevalo [Referring] - 07/31/23 1:45 pm Prescriptions/Medication Reconciliation: Continued omeprazole 20 mg capsule,delayed release(DR/EC) 20 mg PO BID estradiol 1 mg tablet 2 mg PO DAILY levothyroxine 125 mcg tablet 250 mcg PO DAILY losartan 50 mg tablet 50 mg PO DAILY calcitriol 0.25 mcg capsule 0.25 mcg PO DAILY Patient Comments: TAKE ONE (1) TABLET BY MOUTH ONCE DAILY Problem Reconciliation Problems Reviewed?: Yes Patient Discharge Instructions ACTIVITY: Ambulate as tolerated DIET: continue same diet Patient Instructions: DI for Muscle Weakness, Protect Yourself from Tickborne Illnesses Providers Primary Care Provider: Provider,Referral Admit Provider: Jazmine Martell Attending Provider: Jazmine Martell
== END 2023-07-23 17:05 | disposition home or self-care (01) ==
PROVIDERS: Admitting Provider Internal Medicine; Visit Provider Internal Medicine
DX: R53.1 Weakness (principal); I10 Essential (primary) hypertension; R50.9 Fever, unspecified; R05.9 Cough, unspecified; W57.XXXA Bitten or stung by nonvenomous insect and other nonvenomous arthropods, initial encounter; Z79.899 Other long term (current) drug therapy
CPT/HCPCS: 36415; 70450; 71045; 80048; 80076; 83605; 83735; 84484; 85025; 87040; 87636; 97162; 97165; G0378; J0696; J1650; J2405; J2765

== ENCOUNTER 2024-03-21 18:39 | Emergency (ER) | payer OTHER, SELFPAY ==
[2024-03-21] VITALS (12 sets, daily range): BP systolic 114–172; BP diastolic 76–102; PULSE 80–116; RESP 20; TEMP 36.6–36.8; O2SAT 94–98; BMI 27.1
--- NOTE | 2024-03-21 19:29 | CT_ITS ---
PROCEDURE INFORMATION: Exam: CTA Chest With Contrast Exam date and time: 03/21/2024 8:25 PM Age: 54 years old Clinical indication: Other: Rue swelling cp severe TECHNIQUE: Imaging protocol: Computed tomographic angiography of the chest with contrast. Exam focused on the arteries. 3D rendering (Not supervised by radiologist): MIP and/or 3D reconstructed images were created by the technologist. Radiation optimization: All CT scans at this facility use at least one of these dose optimization techniques: automated exposure control; mA and/or kV adjustment per patient size (includes targeted exams where dose is matched to clinical indication); or iterative reconstruction. Contrast material: ISOVUE 370; Contrast volume: 70 ml; Contrast route: INTRAVENOUS (IV); COMPARISON: CT ANGIO CHEST PE PROTOCOL 05/24/2021 2:13 AM FINDINGS: Pulmonary arteries: Normal. No pulmonary emboli. Aorta: Unremarkable. No aortic aneurysm. No aortic dissection. Lungs: Unremarkable. No consolidation. No masses. Pleural spaces: Unremarkable. No pneumothorax. No pleural effusion. Heart: Unremarkable. No cardiomegaly. No pericardial effusion. Lymph nodes: Unremarkable. No enlarged lymph nodes. Bones/joints: Please refer to the report for CT of the shoulder for findings in the shoulder Soft tissues: Bilateral breast augmentation. The right breast implant is ruptured IMPRESSION: Bilateral breast augmentation. The right breast implant is ruptured
--- NOTE | 2024-03-21 19:29 | CT_ITS ---
PROCEDURE INFORMATION: Exam: CT Right Upper Extremity With Contrast, Upper Arm Exam date and time: 03/21/2024 8:31 PM Age: 54 years old Clinical indication: Pain; Upper arm; Right; Additional info: Rue swelling severe pain TECHNIQUE: Imaging protocol: Computed tomography of the right upper extremity with contrast. Exam focused on the upper arm. Radiation optimization: All CT scans at this facility use at least one of these dose optimization techniques: automated exposure control; mA and/or kV adjustment per patient size (includes targeted exams where dose is matched to clinical indication); or iterative reconstruction. Contrast material: ISOVUE; Contrast volume: 43 ml; Contrast route: IV; COMPARISON: CT HUMERUS RT W CON 03/21/2024 8:31 PM FINDINGS: Bones/joints: Calcific density along the superior posterior aspect of the humeral head may represent calcific tendinitis. There is no evidence of acute fracture.There is no evidence of malalignment or dislocation. Soft tissues: Soft tissue swelling of the upper arm IMPRESSION: 1. Calcific density along the superior posterior aspect of the humeral head may represent calcific tendinitis. 2. There is no evidence of acute fracture.There is no evidence of malalignment or dislocation.
--- NOTE | 2024-03-21 19:29 | CT_ITS ---
PROCEDURE INFORMATION: Exam: CT Neck With Contrast Exam date and time: 03/21/2024 8:20 PM Age: 54 years old Clinical indication: Neck pain; Additional info: Prev thyroid cancer, rue swelling severe cp TECHNIQUE: Imaging protocol: Computed tomography of the neck with contrast. Radiation optimization: All CT scans at this facility use at least one of these dose optimization techniques: automated exposure control; mA and/or kV adjustment per patient size (includes targeted exams where dose is matched to clinical indication); or iterative reconstruction. Contrast material: ISOVUE; Contrast volume: 75 ml; Contrast route: IV; COMPARISON: CT SOFT TISSUE NECK W CON 05/24/2021 4:28 AM FINDINGS: Salivary glands: Normal. Glands are normal in size. Pharynx: Unremarkable. No significant tonsillar enlargement. Larynx: Unremarkable. Epiglottis is normal. Thyroid: The thyroid surgically absent. Trachea: Visualized trachea is unremarkable. Lungs: Unremarkable as visualized. Lymph nodes: Unremarkable. No lymphadenopathy. Bones/joints: Postsurgical changes to the mandible with plate and screw fixation. Moderate loss of intervertebral disc space with degenerative changes involving C4 through C7. Soft tissues: Unremarkable. No significant soft tissue swelling. IMPRESSION: No acute findings.
--- NOTE | 2024-03-21 19:29 | CT_ITS ---
PROCEDURE INFORMATION: Exam: CT Right Upper Extremity With Contrast, Shoulder Exam date and time: 03/21/2024 8:31 PM Age: 54 years old Clinical indication: Other: Rue swelling severe pain TECHNIQUE: Imaging protocol: Computed tomography of the right upper extremity with contrast. Exam focused on the shoulder Radiation optimization: All CT scans at this facility use at least one of these dose optimization techniques: automated exposure control; mA and/or kV adjustment per patient size (includes targeted exams where dose is matched to clinical indication); or iterative reconstruction. Contrast material: ISOVUE; Contrast volume: 43 ml; Contrast route: IV; COMPARISON: CT HUMERUS RT W CON 03/21/2024 8:31 PM FINDINGS: Bones/joints: Normal. No acute fracture or dislocation. Soft tissues: Normal. Vasculature: The arterial structures are normal in appearance Other findings: No fluid collection identified IMPRESSION: Unremarkable CT.
--- NOTE | 2024-03-21 19:32 | HMH.EDGENADL ---
Discharge Plan Disposition Patient Disposition: Home, Self-Care Chief Complaint: PAIN Prescriptions Prescriptions: No Action omeprazole 20 mg capsule,delayed release(DR/EC) 20 mg PO BID estradiol 1 mg tablet 2 mg PO DAILY levothyroxine 125 mcg tablet 250 mcg PO DAILY losartan 50 mg tablet 50 mg PO DAILY calcitriol 0.25 mcg capsule 0.25 mcg PO DAILY Patient Comments: TAKE ONE (1) TABLET BY MOUTH ONCE DAILY Referrals Follow up/Referrals: Santy Samson [Primary Care Provider] - See instructions Activity Restrictions/Add. Instructions Additional Instructions/Restrictions: At this time it was felt you are safe to be discharged home. If new or worsening symptoms please do not hesitate to return the emergency department. Tomorrow they should contact you for a formal duplex ultrasound screening for blood clot in your upper arm as we discussed. If they do not contact you by lunchtime please call and ask for the charge nurse in the emergency room or the echo lab to see when you are getting your test. After your test is complete please present to the emergency department for continued evaluation. Clinical Impressions Clinical Impression: Acute shoulder pain, Arm swelling Print Language Print Language: Wolof Discharge ED Provider: Humberto Stephenson General Adult HPI General Chief complaint: PAIN Stated complaint: seny by Jai r/o RT upper forearm red swelling Time Seen by Provider: 03/21/24 19:16 Mode of Arrival: Ambulatory Source of Information: Patient Limitations: No Limitations Description of Symptoms (Recalled from ER Triage Doc. by RN): Pt states right arm pain History of Present Illness HPI narrative: Patient is 54-year-old female with past medical history of thyroid cancer status post subtotal thyroidectomy, undergoing surveillance which was previously normal however was lost to follow-up over the last 2 years presents emergency department for evaluation of right upper extremity swelling and pain. History is obtained by patient at bedside over the last 24 hours she has had severe right upper extremity pain and resultant swelling, since then she has had new onset chest pain that radiates across her right chest to her sternum. No significant shortness of breath reported. Pain is severe and debilitating. No other acute complaints at this time. No trauma. Related Data Home Medications ?Medication ?Instructions ?Recorded ?Confirmed estradiol 1 mg tablet 2 mg PO DAILY 11/04/17 07/22/23 omeprazole 20 mg capsule,delayed 20 mg PO BID 11/04/17 07/22/23 release levothyroxine 125 mcg tablet 250 mcg PO DAILY 08/01/20 07/22/23 losartan 50 mg tablet 50 mg PO DAILY 11/06/22 07/22/23 calcitriol 0.25 mcg capsule 0.25 mcg PO DAILY 07/22/23 07/22/23 Allergies Allergy/AdvReac Type Severity Reaction Status Date / Time No Known Allergies Allergy Verified 11/06/22 11:48 [facility] Disclaimer: The information contained in this section may have been updated after the patient was seen, as this information can be updated by other users. Medical History (Updated 03/21/24 @ 23:32 by Humberto Stephenson MD) Breast implant in situ Cholecystectomy planned Breast mass Back pain Neck pain Otitis media Tobacco dependence syndrome Dizziness SOB (shortness of breath) Tachycardia Multiple pulmonary nodules Thyroid cancer Stress at home Palpitations Chest pain Surgical History (Updated 07/22/23 @ 14:23 by Meena Owen) History of mandibular surgery History of thyroid surgery Family History (Updated 07/22/23 @ 14:25 by Meena Owen) Other Family history of acute heart failure Family history of diabetes mellitus type II Family history of hypothyroidism Family history of stroke Social History (Updated 07/22/23 @ 14:25 by Meena Owen) Smoking Status: Never smoker second hand exposure: Yes alcohol intake: never current occupational status: employed Travel in the last 8 weeks: Inside the [place] household members: spouse housing: house current occupational exposures/hazards: No caffeine: Yes Have you lived/traveled outside [place] in past 30 days?: No Contact w/someone who lives/traveled outside [place] past 30 days?: No Exposure to someone with infectious disease in past 14 days?: No Do you have a fever (greater than 100.4 F or 38 C)?: No Have you tested positive for COVID-19: No Exposed to someone with COVID-19 in past 14 days?: No Do you have a sore throat?: No Do you have a cough?: No Do you have any weakness?: No Do you have any diarrhea?: No Are you experiencing any unusual bleeding?: No Do you have any muscle aches/pain?: No Do you have any abdominal pain?: No Are you experiencing loss of taste or smell?: No Other Medical History Have you received the Flu Vaccine for this season: No Have you received the Pneumonia Vaccine: No ROS Obtained: Yes Systems reviewed as appropriate & no additional complaints except as documented Physical Exam General General appearance: alert and in distress Head Head exam: atraumatic and normocephalic Eye Eye exam: Present PERRL ENT ENT exam: Present mucous membranes moist Neck Neck exam: Present normal inspection Chest Chest inspection: Present normal inspection and symmetric chest wall rise Respiratory Respiratory exam: Present normal lung sounds bilaterally; Absent respiratory distress Cardiovascular Cardiovascular exam: Present normal rhythm and tachycardia Abdominal Exam Abdominal exam: Present soft; Absent tenderness Extremities Exam Extremities exam: Present other (Global right upper extremity swelling, bounding right radial pulse. No crepitus. Patient is able to range the wrist and the elbow freely, severe pain at the shoulder and humerus while ranging.) Neurological Exam Neurological exam: Present alert Psychiatric Psychiatric exam: Present normal affect Skin Skin exam: Present warm and dry Medical Decision Making Medical Records Screening: Per USPSTF and CDC recommendations, given the prevalence of disease in our region, it is our hospital?s policy to screen for HIV and viral Hepatitis for all patients aged 18 and over and those with ongoing risk factors. Naveen Inquiry Pt receiving controlled substance: No Vital Signs: 03/21/24 19:07 03/21/24 19:16 03/21/24 19:30 Temperature 98 F Temperature Source Oral Pulse Rate 107 H 97 H Pulse Rate [Left Brachial] 116 H Respiratory Rate 20 Blood Pressure 167/102 H 172/95 H Blood Pressure [Left Arm] 167/102 H Blood Pressure Mean Blood Pressure Mean [Left Arm] 123 Blood Pressure Source [Left Arm] Automatic Cuff Blood Pressure Position [Left Arm] Sitting 02 Sat by Pulse Oximetry 98 97 94 L Oxygen Delivery Method Room Air Room Air 03/21/24 20:00 03/21/24 21:00 03/21/24 21:30 Temperature Temperature Source Pulse Rate 94 H 105 H 101 H Pulse Rate [Left Brachial] Respiratory Rate Blood Pressure 143/83 H 114/76 115/81 Blood Pressure [Left Arm] Blood Pressure Mean Blood Pressure Mean [Left Arm] Blood Pressure Source [Left Arm] Blood Pressure Position [Left Arm] 02 Sat by Pulse Oximetry 94 L 95 95 Oxygen Delivery Method Room Air Room Air Room Air 03/21/24 22:00 03/21/24 22:30 03/21/24 23:00 Temperature Temperature Source Pulse Rate 103 H 103 H 100 H Pulse Rate [Left Brachial] Respiratory Rate Blood Pressure 129/84 115/79 131/93 H Blood Pressure [Left Arm] Blood Pressure Mean 105 Blood Pressure Mean [Left Arm] Blood Pressure Source [Left Arm] Blood Pressure Position [Left Arm] 02 Sat by Pulse Oximetry 95 95 96 Oxygen Delivery Method Room Air Room Air Lab Data Lab Results 03/21/24 19:45: WBC 13.5 H, RBC 4.84, Hgb 13.6, Hct 41.8, MCV 86.4, MCH 28.1, MCHC 32.5, RDW 13.2, Plt Count 331, MPV 9.1, Neut % (Auto) 69.9, Lymph % (Auto) 16.1, [place] % (Auto) 10.9 H, Eos % (Auto) 2.3, Baso % (Auto) 0.5, Neut # (Auto) 9.4 H, Lymph # (Auto) 2.2, [place] # (Auto) 1.5 H, Eos # (Auto) 0.3, Baso # (Auto) 0.1, Sodium 139, Potassium 4.0, Chloride 103, Carbon Dioxide 27, Anion Gap 13.0, BUN 11, Creatinine 0.60, Estimated Creat Clear 115, Estimated GFR 105, Est GFR ( Amer) 127, Glucose 104 H, Calcium 9.2, Total Bilirubin 0.4, AST 49 H, ALT 55, Alkaline Phosphatase 131 H, Troponin I < 0.01, Total Protein 8.0 D, Albumin 4.8, Globulin 3.2, Albumin/Globulin Ratio 1.5, HCV Ab SABI w/Rflx PCR Qn Negative, HIV Ag/Ab Combo Qual Negative 03/21/24 19:45 03/21/24 19:45 Orders (Tests/Meds): ED MEDICATIONS Discontinued Medications Generic Name Dose Route Start Last Admin Trade Name Freq PRN Reason Stop Dose Admin Acetaminophen 1,000 mg 03/21/24 19:29 Acetaminophen 500mg Tab PO 03/21/24 19:30 ONCE ONE Iopamidol 188 ml 03/21/24 20:42 03/21/24 20:44 Iopamidol-370 (76%);100ml Bottle IV 03/21/24 20:43 188 ml ONCE ONE Administration Ketorolac Tromethamine 30 mg 03/21/24 19:29 Ketorolac 30mg/Ml Vial IV 03/21/24 19:30 ONCE ONE Morphine Sulfate 4 mg 02/10/25 19:29 Morphine 4mg/Ml Syringe IV 03/21/24 19:30 ONCE ONE Ondansetron HCl 4 mg 03/21/24 19:29 Ondansetron 4mg/2ml Vial IV 03/21/24 19:30 ONCE ONE Sodium Chloride 50 ml 03/21/24 20:42 03/21/24 20:44 0.9 % Sodium Chloride 50 Ml Vial IV 03/21/24 20:43 50 ml ONCE ONE Administration Sodium Chloride 10 ml 03/21/24 20:42 03/21/24 20:44 Sodium Chloride 0.9% 10ml Syr (Rad Only) IV 03/21/24 20:43 10 ml ONCE ONE Administration ORDERS Category Date Time Status CT angio chest PE protocol Stat Cat Scan 03/21/24 19:[address] humerus RT w con Stat Cat Scan 03/21/24 19:[address] shoulder RT w con Stat Cat Scan 03/21/24 19:[address] soft tissue neck w con Stat Cat Scan 03/21/24 19:29 Completed POCUS Point of Care (ER Only) Stat Exams 03/21/24 19:16 Completed CBC w/Auto Diff [Complete Blood Count Auto Diff] Stat Lab 03/21/24 19:45 Completed CMP [Comprehensive Metabolic Panel] Stat Lab 03/21/24 19:45 Completed CRP [C-Reactive Protein] Stat Lab 03/21/24 22:55 Received D-Dimer Stat Lab 03/21/24 19:45 Received HIV Combo Routine Lab 03/21/24 19:45 Completed Hepatitis C Ab Qual. W/ RFX Routine Lab 03/21/24 19:45 Completed Trop I [Troponin I] Stat Lab 03/21/24 19:45 Completed Troponin I Q3H Lab 03/21/24 22:55 Received Troponin I Q3H Lab 03/22/24 01:45 Ordered EKG Request [ECG Request] Stat Y 03/21/24 19:35 Completed ECG Data Tracing #1: Independently interpreted by me rate is 95, rhythm is regular, axis is normal, no ST elevation in anatomical contiguous leads, QTc 382. Medical Decision Narrative: In summary patient is a 54-year-old female past medical history described above who presents emergency department for evaluation of right upper extremity swelling and chest pain. Patient is hemodynamically stable upon arrival, tachycardic, and severe pain. I did [id number] ultrasound at bedside which does not show any obvious DVT of the right upper extremity, I did not evaluate the axillary veins very well. She has severe pain and swelling of the upper extremity that radiates into her chest. My concern for axillary subclavian DVT in the setting of previous malignancy is high. IV will be anchored in the left upper extremity. Pain medicine will be administered. Emergent CT imaging of the neck, chest, right upper extremity will be obtained. Hematologic labs will be obtained. Initial workup reviewed by me, mild leukocytosis of 13.5, no LIDIA or critical electrolyte abnormality. Initial troponin undetectably low. CT soft tissue neck no acute findings, CT shoulder unremarkable, CT humerus shows calcific density along the superior posterior aspect of the humeral head which may represent calcific tendinitis, there is soft tissue swelling of the upper arm. I discussed case with [facility] plastics garden consultant and transfer center attending Dr. Herrera. Plastics consult said it would be extremely unlikely for ruptured breast implant to cause isolated upper extremity swelling and blockage of lymphatics. Outpatient follow-up will be arranged for ruptured breast implant which is not emergent. Upon repeat evaluation patient had moderate resolution of her pain. She does have continued swelling but it is not worsened. She is able to range her shoulder and feels a clicking which causes pain. This may be due to her calcific tendinitis. Given that I do not think that she has septic arthritis based on physical exam and she has no evidence of deep space infection on her CT imaging of her arm the only thing that has not definitively been ruled out would be proximal upper extremity DVT. Given that we do not have formal duplex after hours she will be given a dose of Lovenox and will complete upper extremity duplex tomorrow. She was given return precautions and verbalized understanding. Critical Care Critical Care Time Critical Care Time: No
--- NOTE | 2024-03-21 19:33 | PC.NURSE ---
Pt unable to move right arm without pain. Skin pink warm and dry Resp full and easy Speech clear and appropriate. Pt awake and alert and oriented x4 Radial pulses strong and equal. RIght radial pulse 2+ Left 3+
--- NOTE | 2024-03-21 19:46 | ECG_ITS ---
APPROVED REPORT Exam: Resting ECG HR:95 bpm ECG Measurements Heart Rate [address] 153 P 69 QRSd 78 QRS 3 QT 329 T 43 QTc 382 Conclusion SINUS RHYTHM LOW QRS VOLTAGE IN PRECORDIAL LEADS [QRS DEFLECTION < 1.0 mV IN CHEST LEADS] BORDERLINE ECG No STEMI Electronically signed by : SUSHIL CHOWDARY, 03/22/2024 07:01:07
[2024-03-21 19:51] LABS: Basophils # 0.1 K/mm3 (0-0.2); Basophils % 0.5 % (0.1-2.0); Eosinophils # 0.3 K/mm3 (0.0-0.4); Eosinophils % 2.3 % (0.1-12.0); Hematocrit 41.8 % (37.0-47.0); Hemoglobin 13.6 g/dL (12.2-16.2); Lymphocytes # 2.2 K/mm3 (0.7-4.5); Lymphocytes % 16.1 % (10-50); Mean Corpuscular HGB Conc 32.5 g/dL (31.8-35.4); Mean Corpuscular Hemoglobin 28.1 pg (27.0-31.2); Mean Corpuscular Volume 86.4 fl (81-99); Mean Platelet Volume 9.1 fl (7.4-10.4); Monocytes # 1.5 K/mm3 (0.1-1.0); Monocytes % 10.9 % (1.7-9.3); Neutrophils # 9.4 K/mm3 (1.8-7.8); Neutrophils % 69.9 % (37.0-80.0); Platelet Count 331 K/mm3 (142-424); Red Blood Count 4.84 M/mm3 (4.20-5.40); Red Cell Distribution Width 13.2 % (11.5-17.5); White Blood Count 13.5 K/mm3 (4.8-10.8)
--- NOTE | 2024-03-21 19:58 | PC.NURSE ---
Medications given. Computer will not let me chart due to May still logged in Verifiied with Constance FUENTES
--- NOTE | 2024-03-21 20:00 | PC.NURSE ---
Any charting done on this patient done by this RN
[2024-03-21 20:05] LABS: Albumin Level 4.8 g/dl (3.5-5.0); Chloride 103 mmol/L (98-107); Sodium 139 mmol/L (136-145)
[2024-03-21 20:08] LABS: Alanine Aminotransferase 55 U/L (12-78); Albumin/Globulin Ratio 1.5 (1.1-1.8); Alkaline Phosphatase 131 U/L (38-126); Aspartate Amino Transferase 49 U/L (14-36); Bilirubin,Total 0.4 mg/dl (0.2-1.3); Blood Urea Nitrogen 11 mg/dl (7-17); Calcium 9.2 mg/dl (8.4-10.2); Carbon Dioxide 27 mmol/L (22.0-30.0); Creatinine Clearance Estimated 115 mL/min (50-200); Estimated Glomerular Filt Rate 105 ml/min (>60); GFR (African American) 127 ML/MIN (>60); Globulin 3.2 g/dL (1.3-3.2); Glucose 104 mg/dl (74-100)
[2024-03-21 20:21] LABS: Troponin I < 0.01 ng/ml (0.00-0.034)
[2024-03-21] MEDS: 0.9 % SODIUM CHLORIDE 50 ML VIAL IV (20:44)
[2024-03-21] MEDS: SODIUM CHLORIDE 0.9% 10ML SYR (RAD ONLY) 10 ML IV (20:44)
[2024-03-21] MEDS: IOPAMIDOL-370 (76%);100ML BOTTLE 188 ML IV (20:44)
[2024-03-21 21:20] LABS: HIV Combo NEGATIVE (Negative)
[2024-03-21 21:28] LABS: Hepatitis C Ab Qual. W/ RFX NEGATIVE (Negative)
--- NOTE | 2024-03-21 22:46 | PC.NURSE ---
Pt states pain improved
--- NOTE | 2024-03-21 22:51 | PC.NURSE ---
Spoke with [facility] for a transfer. awaiting a call back at this time.
--- NOTE | 2024-03-21 23:07 | PC.NURSE ---
speaking with transferring doc at this time.
--- NOTE | 2024-03-21 23:12 | PC.NURSE ---
No change in previous assessment No increase in right arm swelling.
[2024-03-21 23:21] LABS: C-Reactive Protein 26.3 mg/L (0-4)
[2024-03-21 23:22] LABS: D-Dimer 0.59 ug/mL (0.0-0.5)
[2024-03-21] MEDS: ENOXAPARIN 100MG/ML SYRINGE 65 MG SUBCUT (23:35)
[2024-03-21 23:36] LABS: Troponin I < 0.01 ng/ml (0.00-0.034)
[2024-03-21] MEDS: OXYCODONE 5MG IMMEDIATE RELEASE TABLET 5 MG PO (23:43)
== END 2024-03-21 23:50 | disposition home or self-care (01) ==
PROVIDERS: Emergency Provider Emergency Medicine; PCP Family Medicine
DX: M79.89 Other specified soft tissue disorders (principal); M25.511 Pain in right shoulder; R22.31 Localized swelling, mass and lump, right upper limb
CPT/HCPCS: 70491; 71275; 73201; 80053; 84484; 85025; 85378; 86140; 86803; 87389; 93005; 96372; 99285; J1650; Q9967

== ENCOUNTER 2024-03-22 12:26 | Outpatient (CLI) | payer OTHER, SELFPAY ==
--- NOTE | 2024-03-22 | CA_ITS ---
FINAL REPORT TECHNIQUE: Graded compression, spectral analysis and ultrasound images of the venous system of the right upper extremity were obtained. CLINICAL HISTORY: SEVERE PAIN WITH MOVEMENT RIGHT UPPER ARM X 2 DAYS,EDEMA,NKI FINDINGS: The jugular vein, subclavian vein, axillary vein, brachial vein, cephalic vein and basilic venous system are normal, fully compressible and demonstrate no evidence of thrombosis. IMPRESSION: No evidence of thrombosis of the venous system of the right upper extremity. Reviewed, Interpreted and Dictated by Zaire Castanon MD Transcribed by Sarah Rea Authenticated and [facility]
== END 2024-03-22 23:59 | disposition home or self-care (01) ==
PROVIDERS: PCP Family Medicine; Visit Provider Emergency Medicine
DX: M79.89 Other specified soft tissue disorders (principal)
CPT/HCPCS: 93971